=== PATIENT | male | born 1940 | race Two or more races ===

== ENCOUNTER → 2016-07-04 | Outpatient (CLI) | payer MEDICARE, OTHER | LOC: RAD 07:18 | PROVIDERS: ATTEND Specialist | DX: C34.91 Malignant neoplasm of unspecified part of right bronchus or lung (principal) | CPT/HCPCS: 71260; 82565 ==

== ENCOUNTER → 2017-04-22 | Outpatient (CLI) | payer MEDICARE, OTHER ==
--- NOTE | 2017-04-22 11:53 | RADIOLOGY REPORT (SQ) ---
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 Images reviewed with lung, soft tissue and bone windows. Reconstructed coronal and sagittal MPR images reviewed. All images stored on PACS. All CT scanners at this facility use dose modulation, iterative reconstruction, and/or weight based d osing when appropriate to reduce radiation dose to as low as reasonably achievable (ALARA). [facility]: Dose Right [facility]: CareDose [facility]: Dose Right [facility]: Teradose 4D [facility]: Optovue CONTRAST TYPE AND DOSE: contrast/concentration: Isovue 370.00 mg/ml; Total Contrast Delivered: 80.0 ml; Total Saline Delivered: 34.4 ml RENAL FUNCTION: Creatinine 1.1 RADIATION DOSE: CT Rad equipment meets quality standard of care and radiation dose reduction techniq ues were employed. CTDIvol: 17.1 mGy. DLP: 658 mGy-cm. . LIMITATIONS: None. FINDINGS: LUNGS AND PLEURA: Post right upper lobectomy. Stable subcentimeter ground-glass opacities at the left lung apex axial image 16, unchanged from 2015 . Stable non cat bite granuloma left upper lobe axial image 30. No acute infiltrates. No pleural effusion. No pneumothorax. No worrisome pulmonary nodules. HILAR AND MEDIASTINAL STRUCTURES: Post right upper lobectomy with surgical clips along the right hilu m. No adenopathy. HEART AND VASCULAR STRUCTURES: No aneurysm or dissection. No central pulmonary emboli. No pericardi al effusion. Minimal coronary artery calcification HARDWARE: None in the chest. UPPER ABDOMEN: Small hiatal hernia. Old ventral hernia repair THYROID AND OTHER SOFT TISSUES: No masses. No adenopathy. BONES: Old post thoracotomy rib changes on the right multilevel degenerative disc changes in the mid thoracic spine. OTHER: No other significant finding. IMPRESSION: No CT evidence of recurrent lung cancer in the chest TECHNICAL DOCUMENTATION: JOB ID: [id number] Quality ID # [id number]: Final reports with documentation of one or more dose reduction techniques (e.g., Au tomated exposure control, adjustment of the mA and/or kV according to patient size, use of iterative reconstruction technique) 2010 [employer]- All Rights Reserved
== END ==
LOC: RAD 08:17
PROVIDERS: ATTEND Internal Medicine Hematology & Oncology
DX: C34.91 Malignant neoplasm of unspecified part of right bronchus or lung (principal)
CPT/HCPCS: 71260; 82565

== ENCOUNTER 2017-05-09 11:08 | Day surgery (SDC) | payer MEDICARE, OTHER ==
[~2017-05-09 11:08] MED LIST: KETOROLAC TROMETHAMINE 0.45% 4 DROP/0.4 ML DROPERETTE OS PRN
[2017-05-09] MEDS ORDERED: CHONDR SU A NA/HYALUR INTRAOC KIT (SURGICARE) ONE (11:19)
[2017-05-09] MEDS ORDERED: LIDOCAINE 1% INJ-PF (10 MG/ML) 30 ML SDV ONE (11:19)
[2017-05-09] MEDS ORDERED: PHENYLEPHRINE/KETOROLAC 1%-0.3% 4 ML VIAL ONE (11:19)
[2017-05-09] MEDS: CYCLOPENTOLATE 0.2%/PHENYLEPHRINE 1% OPH SOLN 2 ML OS PRN ×3 (11:23→12:12)
[2017-05-09] MEDS: TROPICAMIDE 1% OPH SOLN 3 ML OS PRN ×3 (11:23→12:12)
[2017-05-09] MEDS: BESIFLOXACIN HCL 0.6% OPH SUSP 5 ML BOTTLE OS PRN ×3 (11:24→13:06)
[2017-05-09] MEDS: TETRACAINE HCL 0.5% OPH SOLN 2 ML OS PRN ×3 (11:25→12:35)
[2017-05-09] MEDS ORDERED: FENTANYL CITRATE INJ/PF 100 MCG/2 ML AMPUL ONE (12:09)
[2017-05-09] MEDS ORDERED: MIDAZOLAM 2 MG/2 ML INJ ONE (12:09)
[2017-05-09] MEDS ORDERED: TOBRAMYCIN SULFATE/DEXAMETH OPH OINTMENT 3.5 GM ONE (13:01)
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
--- NOTE | 2017-05-09 21:13 | [facility] OPERATIVE REPORT E ---
[facility] Operative Report NAME: ALFONSO CARRANZA AGE: 77Y DATE OF SURGERY: 05/09/2017 ROOM: PREOPERATIVE DIAGNOSIS: 1. CATARACT, LEFT EYE. 2. PUPIL MIOSIS LEFT EYE. POSTOPERATIVE DIAGNOSIS: 1. CATARACT, LEFT EYE. 2. PUPIL MIOSIS LEFT EYE. OPERATION: Complex cataract extraction with use of a Malyugin ring. SURGEON: MONIE WOLF M.D. ANESTHESIA: Topical. PROCEDURE: After obtaining appropriate consent, the patient's left eye was prepped and draped in sterile fashion as well as the surgeon in a sterile manner and cataract surgery was started. First a paracentesis blade was used to make a small side-port incision. Viscoelastic was used to inflate the anterior chamber. Next a 2.4 mm incision was made with the paracentesis blade. A continuous capsulorrhexis incision was made using a cystotome and Utrata forceps. Following this hydrodissection was carried out to make the lens fully loose and mobile and it was rotated 90 degrees. Following this, a aeimpw-lja-ryvnewh technique was used to phacoemulsify the lens with a CDE of 8.25. The remaining cortex was removed with irrigation/aspiration. Provisc was instilled into the capsular bag to inflate the bag. A SN60WF, 21.0 diopter lens was placed. The remaining viscoelastic material was removed with irrigation/aspiration. Following this, a 10-0 nylon suture was used to close the incision and it was found to be watertight. Vigamox was instilled in the eye and a protective shield was placed over the eye. The patient returned to the postoperative recovery in stable condition. Prior to making the capsulorrhexis a Malyugin ring was inserted. This was removed at the end of the case. DICTATING PHYSICIAN: MONIE WOLF M.D. [id number] PHY#: [id number] ID: [id number] JOB#: [id number] ACCT: [id number] cc:MONIE WOLF M.D. >
== END 2017-05-09 13:45 | disposition home or self-care (01) ==
LOC: SC 11:08
PROVIDERS: ATTEND Internal Medicine
PROC: 08RK3JZ Replacement of Left Lens with Synthetic Substitute, Percutaneous Approach (ICD-10-PCS; principal; 2017-05-09 13:00)
DX: H25.13 Age-related nuclear cataract, bilateral (principal); H57.03 Miosis; I10 Essential (primary) hypertension; K21.9 Gastro-esophageal reflux disease without esophagitis; E11.9 Type 2 diabetes mellitus without complications; Z79.84 Long term (current) use of oral hypoglycemic drugs; Z79.01 Long term (current) use of anticoagulants; Z85.51 Personal history of malignant neoplasm of bladder; Z85.118 Personal history of other malignant neoplasm of bronchus and lung; I48.91 Unspecified atrial fibrillation
CPT/HCPCS: 66982; 82962; V2632; J2250; J3490 ×3; A9270; J3010; C9447; 142

== ENCOUNTER 2017-06-06 08:28 | Outpatient (CLI) | payer MEDICARE, OTHER ==
[~2017-06-06 08:28] MED LIST changes: +FERUMOXYTOL (NON-ESRD) 510 MG/NS 100 ML IV PRN; -KETOROLAC TROMETHAMINE 0.45% 4 DROP/0.4 ML DROPERETTE OS PRN; +NORMAL SALINE 250 ML IV PRN
[2017-06-06 09:44] VITALS: BP 125/71
== END 2017-06-06 10:02 | disposition home or self-care (01) ==
LOC: II 08:28 → 5TH 08:29 → II 10:02
PROVIDERS: ATTEND Internal Medicine Hematology & Oncology
PROC: 3E033GC Introduction of Other Therapeutic Substance into Peripheral Vein, Percutaneous Approach (ICD-10-PCS; principal; 2017-06-06)
DX: D50.0 Iron deficiency anemia secondary to blood loss (chronic) (principal); N18.3 Chronic kidney disease, stage 3 (moderate)
CPT/HCPCS: 96365; Q0138

== ENCOUNTER 2017-06-13 08:22 | Outpatient (CLI) | payer MEDICARE, OTHER ==
[2017-06-13 08:48] VITALS: BP 127/73
== END 2017-06-13 09:34 | disposition home or self-care (01) ==
LOC: II 08:22 → 5TH 08:24 → II 09:34
PROVIDERS: ATTEND Internal Medicine Hematology & Oncology
PROC: 3E033GC Introduction of Other Therapeutic Substance into Peripheral Vein, Percutaneous Approach (ICD-10-PCS; principal; 2017-06-13)
DX: D50.0 Iron deficiency anemia secondary to blood loss (chronic) (principal); N18.3 Chronic kidney disease, stage 3 (moderate)
CPT/HCPCS: 96367; Q0138; 96365

== ENCOUNTER 2017-06-20 10:37 | Day surgery (SDC) | payer MEDICARE, OTHER ==
[~2017-06-20 10:37] MED LIST changes: +BESIFLOXACIN HCL 0.6% OPH SUSP 5 ML BOTTLE OD PRN; +CYCLOPENTOLATE 0.2%/PHENYLEPHRINE 1% OPH SOLN 2 ML OD PRN; -FERUMOXYTOL (NON-ESRD) 510 MG/NS 100 ML IV PRN; +KETOROLAC TROMETHAMINE 0.45% 4 DROP/0.4 ML DROPERETTE OD PRN; -NORMAL SALINE 250 ML IV PRN; +TETRACAINE HCL 0.5% OPH SOLN 2 ML OD PRN; +TROPICAMIDE 1% OPH SOLN 3 ML OD PRN
[2017-06-20] MEDS: TETRACAINE HCL 0.5% OPH SOLN 2 ML OD PRN ×3 (10:52→11:47)
[2017-06-20] MEDS: TROPICAMIDE 1% OPH SOLN 3 ML OD PRN ×3 (10:53→11:20)
[2017-06-20] MEDS: CYCLOPENTOLATE 0.2%/PHENYLEPHRINE 1% OPH SOLN 2 ML OD PRN ×3 (10:53→11:21)
[2017-06-20] MEDS: BESIFLOXACIN HCL 0.6% OPH SUSP 5 ML BOTTLE OD PRN ×4 (10:54→12:16)
[2017-06-20] MEDS ORDERED: CHONDR SU A NA/HYALUR INTRAOC KIT (SURGICARE) ONE (10:55)
[2017-06-20] MEDS ORDERED: PHENYLEPHRINE/KETOROLAC 1%-0.3% 4 ML VIAL ONE (10:55)
[2017-06-20] MEDS ORDERED: LIDOCAINE 1% INJ-PF (10 MG/ML) 30 ML SDV ONE (10:55)
[2017-06-20] MEDS ORDERED: EPINEPHRINE INJ/PF 1 MG/1 ML AMPULE ONE (11:04)
[2017-06-20] MEDS ORDERED: MIDAZOLAM 2 MG/2 ML INJ ONE (11:39)
[2017-06-20] MEDS ORDERED: FENTANYL CITRATE INJ/PF 100 MCG/2 ML AMPUL ONE (11:40)
--- NOTE | 2017-06-20 17:28 | [facility] OPERATIVE REPORT E ---
[facility] Operative Report NAME: ALFONSO CARRANZA AGE: 77Y DATE OF SURGERY: 06/20/2017 ROOM: PREOPERATIVE DIAGNOSIS: 1. CATARACT, RIGHT EYE. 2. PUPIL MIOSIS OF THE RIGHT EYE. POSTOPERATIVE DIAGNOSIS: 1. CATARACT, RIGHT EYE. 2. PUPIL MIOSIS OF THE RIGHT EYE. OPERATION: Complex cataract extraction with use of a Malyugin and intraocular lens implant of the right eye. SURGEON: MONIE WOLF M.D. ANESTHESIA: Topical. PROCEDURE: After obtaining appropriate consent, the patient's right eye was prepped and draped in sterile fashion as well as the surgeon in a sterile manner and cataract surgery was started. First a paracentesis blade was used to make a small side-port incision. Viscoelastic was used to inflate the anterior chamber. Next a 2.4 mm incision was made with the paracentesis blade. A continuous capsulorrhexis incision was made using a cystotome and Utrata forceps. Following this hydrodissection was carried out to make the lens fully loose and mobile and it was rotated 90 degrees. Following this, a ikajoz-uzc-qjmypzj technique was used to phacoemulsify the lens with a CDE of 8.49. The remaining cortex was removed with irrigation/aspiration. Provisc was instilled into the capsular bag to inflate the bag. A SN60WF, 19.5 diopter lens was placed. The remaining viscoelastic material was removed with irrigation/aspiration. Following this, a 10-0 nylon suture was used to close the incision and it was found to be watertight. Vigamox was instilled in the eye and a protective shield was placed over the eye. The patient returned to the postoperative recovery in stable condition. DICTATING PHYSICIAN: MONIE WOLF M.D. [id number] PHY#: [id number] ID: [id number] JOB#: [id number] ACCT: [id number] cc:MONIE WOLF M.D. >
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
== END 2017-06-20 12:52 | disposition home or self-care (01) ==
LOC: SC 10:37
PROVIDERS: ATTEND Internal Medicine
PROC: 08RJ3JZ Replacement of Right Lens with Synthetic Substitute, Percutaneous Approach (ICD-10-PCS; principal; 2017-06-20 12:30)
DX: H25.11 Age-related nuclear cataract, right eye (principal); H57.03 Miosis; I10 Essential (primary) hypertension; E11.9 Type 2 diabetes mellitus without complications; K21.9 Gastro-esophageal reflux disease without esophagitis; M79.7 Fibromyalgia
CPT/HCPCS: 82962; 66984; V2632; J2250; J3490 ×2; A9270; J0171; J3010; 142; C9447

== ENCOUNTER 2017-08-20 07:20 | Outpatient (CLI) | payer MEDICARE, OTHER ==
[~2017-08-20 07:20] MED LIST changes: -BESIFLOXACIN HCL 0.6% OPH SUSP 5 ML BOTTLE OD PRN; -CYCLOPENTOLATE 0.2%/PHENYLEPHRINE 1% OPH SOLN 2 ML OD PRN; +FERRIC CARBOXYMALTOSE 750 MG in NORMAL SALINE 250 ML IV PRN; -KETOROLAC TROMETHAMINE 0.45% 4 DROP/0.4 ML DROPERETTE OD PRN; +NORMAL SALINE 250 ML IV PRN; -TETRACAINE HCL 0.5% OPH SOLN 2 ML OD PRN; -TROPICAMIDE 1% OPH SOLN 3 ML OD PRN
[2017-08-20 08:07] VITALS: BP 153/86
== END 2017-08-20 09:09 | disposition home or self-care (01) ==
LOC: II 07:20 → 5TH 07:22 → II 09:09
PROVIDERS: ATTEND Internal Medicine Hematology & Oncology
PROC: 3E033GC Introduction of Other Therapeutic Substance into Peripheral Vein, Percutaneous Approach (ICD-10-PCS; principal; 2017-08-20)
DX: D50.0 Iron deficiency anemia secondary to blood loss (chronic) (principal); K90.9 Intestinal malabsorption, unspecified
CPT/HCPCS: 96365; J7050; J1439

== ENCOUNTER 2017-08-27 07:36 | Outpatient (CLI) | payer MEDICARE, OTHER ==
[2017-08-27 08:07] VITALS: BP 140/73
== END 2017-08-27 09:56 | disposition home or self-care (01) ==
LOC: II 07:36 → 5TH 07:39 → II 09:56
PROVIDERS: ATTEND Internal Medicine Hematology & Oncology
PROC: 3E033GC Introduction of Other Therapeutic Substance into Peripheral Vein, Percutaneous Approach (ICD-10-PCS; principal; 2017-08-27)
DX: D50.0 Iron deficiency anemia secondary to blood loss (chronic) (principal); K90.9 Intestinal malabsorption, unspecified
CPT/HCPCS: 96365; J7050; J1439

== ENCOUNTER → 2018-07-30 | Outpatient (CLI) | payer MEDICARE, OTHER ==
--- NOTE | 2018-07-30 09:19 | RADIOLOGY REPORT (SQ) ---
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 Images reviewed with lung, soft tissue and bone windows. Reconstructed coronal and sagittal MPR images reviewed. All images st ored on PACS. All CT scanners at this facility use dose modulation, iterative reconstruction, and/or weight based d osing when appropriate to reduce radiation dose to as low as reasonably achievable (ALARA). [facility]: Dose Right [facility]: CareDose [facility]: Dose Right [facility]: Teradose 4D [facility]: [employer] RADIATION DOSE: CT Rad equipment meets quality standard of care and radiation dose reduction techniq ues were employed. CTDIvol: 15.9 mGy. DLP: 604 mGy-cm. mGy. LIMITATIONS: No technical limitations. FINDINGS: LUNGS AND PLEURA: Focal areas of ground-glass opacity in the left lung apex are stable fro m prior exam. There is stable scarring in the right upper lobe. There is volume loss on the right. There is a stable subpleural nodule in the periphery of the left upper lobe demonstrated on image 36 . HILAR AND MEDIASTINAL STRUCTURES: Postsurgical changes in the right hilum. No pathologic adenopathy. HEART AND VASCULAR STRUCTURES: No aneurysm. No pericardial effusion. UPPER ABDOMEN: No significant findings. Limited exam. THYROID AND OTHER SOFT TISSUES: No masses. No adenopathy. BONES: Post thoracotomy changes on the right. HARDWARE: None in the chest. OTHER: No other significant findings. IMPRESSION: Stable CT of the chest. No evidence of recurrent disease or metastatic disease. TECHNICAL DOCUMENTATION: JOB ID: [id number] Quality ID # [id number]: Final reports with documentation of one or more dose reduction techniques (e.g., Au tomated exposure control, adjustment of the mA and/or kV according to patient size, use of iterative reconstruction technique) 2010 [employer]- All Rights Reserved Reading location - IP/workstation name: [email or web address]
== END ==
LOC: RAD 07:39
PROVIDERS: ATTEND Internal Medicine Hematology & Oncology
DX: C34.91 Malignant neoplasm of unspecified part of right bronchus or lung (principal)
CPT/HCPCS: 71250

== ENCOUNTER → 2019-08-03 | Outpatient (CLI) | payer MEDICARE, OTHER ==
--- NOTE | 2019-08-03 12:01 | RADIOLOGY REPORT (SQ) ---
EXAM DESCRIPTION: CT CHEST WITHOUT COMPLETED DATE/TIME: 08/03/2019 9:44 am REASON FOR STUDY: (C34.91)MALIGNANT NEOPLASM OF UNSP PART OF RIGHT BRONCHUS OR LUNG C34.91 MALIGNAN T NEOPLASM OF UNSP PART OF RIGHT BRONCHUS OR COMPARISON: 07/30/2018 TECHNIQUE: CT scan performed of the chest without intravenous contrast. Images reviewed with lung, soft tissue and bone windows. Reconstructed coronal and sagittal MPR images reviewed. All images st ored on PACS. All CT scanners at this facility use dose modulation, iterative reconstruction, and/or weight based d osing when appropriate to reduce radiation dose to as low as reasonably achievable (ALARA). [facility]: Dose Right [facility]: CareDose [facility]: Dose Right [facility]: Teradose 4D [facility]: [employer] RADIATION DOSE: CT Rad equipment meets quality standard of care and radiation dose reduction techniq ues were employed. CTDIvol: 15.0 mGy. DLP: 604 mGy-cm. mGy. LIMITATIONS: No technical limitations. FINDINGS: LUNGS AND PLEURA: Ground-glass opacities in the left apex are stable to slightly smaller t miles on the previous study. Best seen image 19 series 4. Pleural base nodule left lung stable sub 5 mm. Image 36 series 4. HILAR AND MEDIASTINAL STRUCTURES: No identified masses or abnormal nodes. No obvious aneurysm. HEART AND VASCULAR STRUCTURES: Moderate coronary artery calcification. No pericardial effusion. UPPER ABDOMEN: No significant findings. Limited exam. THYROID AND OTHER SOFT TISSUES: No masses. No adenopathy. BONES: No significant finding. HARDWARE: None in the chest. OTHER: No other significant findings. IMPRESSION: Stable CT of the chest. No evidence for recurrence. Moderate coronary artery calcification. TECHNICAL DOCUMENTATION: JOB ID: [id number] Quality ID # [id number]: Final reports with documentation of one or more dose reduction techniques (e.g., Au tomated exposure control, adjustment of the mA and/or kV according to patient size, use of iterative reconstruction technique) 2010 [employer]- All Rights Reserved Reading location - IP/workstation name: [email or web address]
== END ==
LOC: RAD 09:28
PROVIDERS: ATTEND Nurse Practitioner Family
DX: C34.91 Malignant neoplasm of unspecified part of right bronchus or lung (principal)
CPT/HCPCS: 71250

== ENCOUNTER 2020-05-25 12:34 | Emergency (ER) | payer MEDICARE, OTHER ==
[2020-05-25] MEDS ORDERED: NORMAL SALINE 1000 ML 1,000 ML IV ONE (12:51)
--- NOTE | 2020-05-25 13:02 | ER Document Report ---
ED Medical Screen (RME) - General Chief Complaint: Shortness Of Breath Stated Complaint: SHORT OF BREATH,COUGH Time Seen by Provider: 05/25/20 12:49 Primary Care Provider: IFRAH CORONEL MD [Primary Care Provider] - Follow up as needed Mode of Arrival: Wheelchair Information source: Patient Notes: 80-year-old male patient with multiple comorbidities presenting to the emergency department with generalized malaise, weakness and back pain. Patient reports he tested positive for Covid on 05/12/2020. He states he is not getting any better. Patient is hypotensive in triage, he overall actually appears well and is answering all questions appropriately. Lung sounds clear and equal bilaterally. I have greeted and performed a rapid initial assessment of this patient. A comprehensive ED assessment and evaluation of the patient, analysis of test results and completion of the medical decision making process will be conducted by additional ED providers. I have specifically instructed the patient or family members with the patient to immediately return to any nursing staff should anything change in the patient's condition or with their chief complaint. TRAVEL OUTSIDE OF THE [place] IN LAST 30 DAYS: No - Related Data Allergies/Adverse Reactions: No Known Allergies Allergy (Verified 05/01/17 14:29) Past Medical History - Past Medical History Cardiac Medical History: Reports: Hx Hypertension - MEDICATED Denies: Hx Heart Attack Pulmonary Medical History: Denies: Hx Asthma Neurological Medical History: Denies: Hx Cerebrovascular Accident, Hx Seizures GI Medical History: Denies: Hx Hepatitis, Hx Hiatal Hernia, Hx Ulcer Infectious Medical History: Denies: Hx Hepatitis Past Surgical History: Denies: Hx Open Heart Surgery, Hx Pacemaker Physical Exam - Vital signs Vitals: Temp Pulse Resp BP Pulse Ox 98.0 F 76 24 H 84/58 L 96 05/25/20 12:44 05/25/20 12:44 05/25/20 12:44 05/25/20 12:44 05/25/20 12:44 Course - Vital Signs Vital signs: Temp Pulse Resp BP Pulse Ox 98.0 F 76 24 H 84/58 L 96 05/25/20 12:44 05/25/20 12:44 05/25/20 12:44 05/25/20 12:44 05/25/20 12:44 Doctor's Discharge - Discharge Referrals: IFRAH CORONEL MD [Primary Care Provider] - Follow up as needed
--- NOTE | 2020-05-25 13:34 | RADIOLOGY REPORT (SQ) ---
EXAM DESCRIPTION: CHEST SINGLE VIEW IMAGES COMPLETED DATE/TIME: 05/25/2020 1:26 pm REASON FOR STUDY: SHORTNESS OF BREATH/RECENT COVID+ 05/12 COMPARISON: None. EXAM PARAMETERS: NUMBER OF VIEWS: One view. TECHNIQUE: Single frontal radiographic view of the chest acquired. RADIATION DOSE: NA LIMITATIONS: None. FINDINGS: LUNGS AND PLEURA: Surgical changes on the right with volume loss. Faint opacity in the mi d right lung. Left lung relatively clear. No large pleural effusion. No pneumothorax. MEDIASTINUM AND HILAR STRUCTURES: No masses. Contour normal. HEART AND VASCULAR STRUCTURES: Heart normal in size. Normal vasculature. BONES: No acute findings. Degenerative changes in the spine. Surgical changes in the right ribs. HARDWARE: None in the chest. OTHER: No other significant finding. IMPRESSION: STABLE SURGICAL CHANGES ON THE RIGHT. FAINT OPACITY IN THE MID RIGHT LUNG COULD REPRESE NT UNDERLYING PNEUMONIA. TECHNICAL DOCUMENTATION: JOB ID: [id number] 2010 [employer]- All Rights Reserved Reading location - IP/workstation name: [email or web address]
[2020-05-25 14:15] LABS: ABSOLUTE BASOPHILS # (AUTO) 0.2 10^3/uL (0.0-0.2); ABSOLUTE EOSINOPHILS # (AUTO) 0.2 10^3/uL (0.0-0.6); ABSOLUTE LYMPHOCYTES (AUTO) 2.1 10^3/uL (0.5-4.7); ABSOLUTE MONOCYTES (AUTO) 1.2 10^3/uL (0.1-1.4); ABSOLUTE NEUT (AUTO) 6.7 10^3/uL (1.7-8.2); BASOPHILS % (AUTO) 1.6 % (0-2); EOSINOPHILS % (AUTO) 2.1 % (0-6); HEMATOCRIT 39.2 % (37.9-51.0); HEMOGLOBIN 13.5 g/dL (13.5-17.0); LYMPHOCYTES % (AUTO) 20.2 % (13-45); MEAN CORPUSCULAR HEMOGLOBIN 29.9 pg (27.0-33.4); MEAN CORPUSCULAR HGB CONC 34.4 g/dL (32.0-36.0); MEAN CORPUSCULAR VOLUME 87 fl (80-97); MONOCYTES % (AUTO) 11.3 % (3-13); PLATELET COUNT 472 10^3/uL (150-450); RED BLOOD COUNT 4.52 10^6/uL (4.35-5.55); RED CELL DISTRIBUTION WIDTH 15.2 % (11.5-14.0); SEGMENTED NEUTROPHILS % (AUTO) 64.8 % (42-78); TOTAL CELLS COUNTED % (AUTO) 100 %; WHITE BLOOD COUNT 10.4 10^3/uL (4.0-10.5)
[2020-05-25 14:50] LABS: ALBUMIN 3.4 g/dL (3.5-5.0); ALKALINE PHOSPHATASE 55 U/L (38-126); ANION GAP 8 (5-19); ASPARTATE AMINO TRANSFERASE 24 U/L (17-59); BILIRUBIN,DIRECT 0.2 mg/dL (0.0-0.4); BILIRUBIN,TOTAL 1.6 mg/dL (0.2-1.3); BLOOD UREA NITROGEN 24 mg/dL (7-20); CALCIUM 8.7 mg/dL (8.4-10.2); CARBON DIOXIDE 26 mmol/L (22-30); CHLORIDE 108 mmol/L (98-107); GLUCOSE 112 mg/dL (75-110); POTASSIUM 3.7 mmol/L (3.6-5.0); TOTAL PROTEIN 6.3 g/dL (6.3-8.2)
--- NOTE | 2020-05-25 15:03 | ER Document Report ---
ED General - General Chief Complaint: General Weakness Stated Complaint: SHORT OF BREATH,COUGH Time Seen by Provider: 05/25/20 12:49 Primary Care Provider: IFRAH CORONEL MD [Primary Care Provider] - Follow up tomorrow Mode of Arrival: Wheelchair TRAVEL OUTSIDE OF THE [place] IN LAST 30 DAYS: No - HPI Notes: Patient is a 80-year-old male with a past medical history of hypertension, atrial fibrillation, lung mass status post resection who presents with Covid complaints. Patient was diagnosed with Covid at the end of April. He states that he saw the PCP and was given an antibiotic but does not member what it was. He returns today because he still feels weak and tired. He states that he is unable to eat because he has no appetite. He states that he is able to drink water. He denies any chest pain. He has a slight cough left over. No head aches. No chest pain, no shortness of breath. No abdominal pain. He mentions he does still have occasional diarrhea. - Related Data Allergies/Adverse Reactions: No Known Allergies Allergy (Verified 05/01/17 14:29) Past Medical History - General Information source: Patient - Social History Smoking Status: Former Smoker Chew tobacco use (# tins/day): No Frequency of alcohol use: None Drug Abuse: None Lives with: Family Family History: Reviewed & Not Pertinent Patient has homicidal ideation: No - Past Medical History Cardiac Medical History: Reports: Hx Hypertension - MEDICATED Denies: Hx Heart Attack Pulmonary Medical History: Denies: Hx Asthma Neurological Medical History: Denies: Hx Cerebrovascular Accident, Hx Seizures GI Medical History: Denies: Hx Hepatitis, Hx Hiatal Hernia, Hx Ulcer Infectious Medical History: Denies: Hx Hepatitis Past Surgical History: Denies: Hx Open Heart Surgery, Hx Pacemaker Review of Systems - Review of Systems Notes: CONSTITUTIONAL: No fever or weight loss. Positive for fatigue. SKIN: No rash. HENT: No congestion, ear pain, or sore throat. EYES: No recent vision problems or eye pain. CARDIOVASCULAR: No chest pain or edema. RESPIRATORY: No cough, shortness of breath, congestion, or wheezing. GASTROINTESTINAL: No abdominal pain, nausea, vomiting. Positive for loss of appetite and occasional nonbloody diarrhea. MUSCULOSKELETAL: No joint pain or swelling. LYMPHATIC: No swollen glands. NEUROLOGIC: No seizures. No headache, focal weakness or sensory changes. HEMATOLOGIC: No unusual bruising or bleeding. PSYCHIATRIC: No depression or anxiety. Physical Exam - Vital signs Vitals: Temp Pulse Resp BP Pulse Ox 98.0 F 76 24 H 84/58 L 96 05/25/20 12:44 05/25/20 12:44 05/25/20 12:44 05/25/20 12:44 05/25/20 12:44 - General General appearance: Appears well In distress: None Notes: VITAL SIGNS: Within normal limits. GENERAL: No acute distress, non-toxic appearance. HEAD: Normal with no signs of head trauma. EYES: Conjunctiva normal, no discharge. EARS: Hearing grossly intact. NOSE: Normal. NECK: Normal range of motion, no tenderness, supple, no lymphadenopathy, No adenopathy, no JVD. CHEST: Clear breath sounds bilaterally. No wheezes, rales, or rhonchi. CARDIAC: Regular rate and rhythm. VASCULAR: No Edema. ABDOMEN: Normal and soft with no tenderness, no masses or pulsatile masses. MUSCULOSKELETAL: Good range of motion of all major joints. Extremities without clubbing, cyanosis or edema. NEUROLOGICAL: Alert and oriented x 3. No focal sensory or strength deficits. Speech normal. Follows commands appropriately. PSYCHIATRIC: Normal Affect, judgement and mood. SKIN: Normal appearance with no rashes or lesions. Course - Re-evaluation Re-evalutation: 05/25/20 15:03 Patient appears well on exam. He was initially hypotensive in triage but this resolved before fluids were even started. He is resting comfortably and watching TV. He was placed on 2 L nasal cannula for comfort. I have taken this off to see how he does on room air. He is not tachypneic or in any respiratory distress. Patient has been off oxygen and satting in the high 90s. He was ambulated and his O2 saturations were 99% on room air. He is not in any respiratory distress. His lab work-up is unremarkable. He does have a finding of possibly a new developing pneumonia. I discussed this with Dr. Coronel, his PCP. He stated that patient can be sent home on doxycycline and a Medrol Dosepak. Dr. Coronel stated he will call him tomorrow and follow-up with him. Patient is very agreeable to this plan. He was given strict return precautions. 05/25/20 20:46 - Vital Signs Vital signs: Temp Pulse Resp BP Pulse Ox 98.5 F 76 17 121/73 94 05/25/20 18:01 05/25/20 12:44 05/25/20 18:01 05/25/20 18:01 05/25/20 18:01 - Laboratory Results Result Diagrams: 05/25/20 13:55 05/25/20 13:55 Laboratory Results Interpreted: 05/25/20 05/25/20 05/25/20 13:55 13:55 16:07 RDW 15.2 H Plt Count 472 H Chloride 108 H BUN 24 H Glucose 112 H Total Bilirubin 1.6 H Albumin 3.4 L Urine Protein 30 H Urine Ketones TRACE H Urine Ascorbic Acid 40 H Critical Laboratory Results Reviewed: No Critical Results - Radiology Results Critical Radiology Results Reviewed: No Critical Results - EKG Interpretation by Me EKG shows normal: Sinus rhythm Rate: Normal When compared to previous EKG there are: No significant change Additional EKG results interpreted by me: 05/25/20 20:48 Sinus rhythm at a rate of 64. QTc 458. PVCs present. No acute ST changes. Artifact present. No significant change from previous. Discharge - Discharge Clinical Impression: Pneumonia due to COVID-19 virus Condition: Stable Disposition: HOME, SELF-CARE Instructions: COVID-19 Guidance for Persons Under Investigation Additional Instructions: Your work-up today is reassuring. Your oxygen is normal. Please take your antibiotics and steroid pack. Dr. Coronel will follow up with you tomorrow and give you a call. Return to the ER for any shortness of breath or worsening symptoms. Prescriptions: Methylprednisolone [Medrol Dosepack (4 mg/Tab) 21 Tab/Dosepak] 4 mg PO ASDIR PRN #21 tab.ds.pk PRN Reason: Doxycycline Hyclate [Vibramycin] 100 mg PO BID 7 Days #14 capsule Referrals: IFRAH CORONEL MD [Primary Care Provider] - Follow up tomorrow
[2020-05-25 16:28] LABS: APPEARANCE,URINE CLEAR; BILIRUBIN,URINE NEGATIVE (NEGATIVE); COLOR,URINE YELLOW; GLUCOSE, URINE NEGATIVE (NEGATIVE); KETONES,URINE TRACE mg/dL (NEGATIVE); LEUKOCYTE ESTERASE,URINE NEGATIVE (NEGATIVE); NITRITE,URINE NEGATIVE (NEGATIVE); PROTEIN,URINE 30 mg/dL (NEGATIVE); URINE SPECIFIC GRAVITY 1.024; UROBILINOGEN,URINE NEGATIVE mg/dL (<2.0)
[2020-05-25] MEDS ORDERED: DOXYCYCLINE HYCLATE 100 MG TABLET PO ONE (17:11)
[2020-05-25 18:42] VITALS: BP 121/73
--- NOTE | 2020-05-25 19:20 | EKG REPORT ---
SEVERITY:- ABNORMAL ECG - SINUS RHYTHM VENTRICULAR BIGEMINY NONSPECIFIC INTRAVENTRICULAR CONDUCTION DELAY : Confirmed by: María Villatoro MD 25-May-2020 19:19:36
== END 2020-05-25 19:21 | disposition home or self-care (01) ==
LOC: ER 12:34
DX: U07.1 COVID-19 (principal); J12.82 Pneumonia due to coronavirus disease 2019; Z87.891 Personal history of nicotine dependence
CPT/HCPCS: 93005; 99285; 96360; 36415; 87040; 83605; 85025; 80053; 81001; 84484; 85379; 71045; 93010; A9270; J7030

== ENCOUNTER 2020-06-03 19:53 | Inpatient (IN) | payer MEDICARE, OTHER ==
[2020-06-03] MEDS ORDERED: NORMAL SALINE 1000 ML 1,000 ML IV ONE ×2 (20:23→21:05)
[2020-06-03 20:35] LABS: ABSOLUTE BASOPHILS # (AUTO) 0.1 10^3/uL (0.0-0.2); ABSOLUTE EOSINOPHILS # (AUTO) 0.1 10^3/uL (0.0-0.6); ABSOLUTE LYMPHOCYTES (AUTO) 3.2 10^3/uL (0.5-4.7); ABSOLUTE MONOCYTES (AUTO) 1.5 10^3/uL (0.1-1.4); ABSOLUTE NEUT (AUTO) 10.5 10^3/uL (1.7-8.2); BASOPHILS % (AUTO) 0.9 % (0-2); EOSINOPHILS % (AUTO) 0.8 % (0-6); HEMOGLOBIN 14.6 g/dL (13.5-17.0); LYMPHOCYTES % (AUTO) 20.8 % (13-45); MEAN CORPUSCULAR HEMOGLOBIN 29.7 pg (27.0-33.4); MEAN CORPUSCULAR HGB CONC 33.9 g/dL (32.0-36.0); MEAN CORPUSCULAR VOLUME 88 fl (80-97); MONOCYTES % (AUTO) 9.9 % (3-13); PLATELET COUNT 507 10^3/uL (150-450); RED BLOOD COUNT 4.91 10^6/uL (4.35-5.55); SEGMENTED NEUTROPHILS % (AUTO) 67.6 % (42-78); TOTAL CELLS COUNTED % (AUTO) 100 %; WHITE BLOOD COUNT 15.5 10^3/uL (4.0-10.5)
[2020-06-03 20:52] LABS: ALBUMIN 3.1 g/dL (3.5-5.0); ALKALINE PHOSPHATASE 46 U/L (38-126); ANION GAP 12 (5-19); ASPARTATE AMINO TRANSFERASE 20 U/L (17-59); BILIRUBIN,DIRECT 0.3 mg/dL (0.0-0.4); BILIRUBIN,TOTAL 1.9 mg/dL (0.2-1.3); BLOOD UREA NITROGEN 33 mg/dL (7-20); CALCIUM 8.5 mg/dL (8.4-10.2); CARBON DIOXIDE 21 mmol/L (22-30); CHLORIDE 105 mmol/L (98-107); GLUCOSE 151 mg/dL (75-110); POTASSIUM 3.6 mmol/L (3.6-5.0); TOTAL PROTEIN 5.8 g/dL (6.3-8.2)
[2020-06-03] MEDS ORDERED: NOREPINEPHRINE BITARTRATE INJ/PF 4 MG/4 ML SDV IV ONE (21:03)
[2020-06-03] MEDS ORDERED: DEXTROSE 5%-WATER 250 ML with NOREPINEPHRINE BITARTRATE 4 MG IV PRN ×2 (21:04)
--- NOTE | 2020-06-03 21:06 | ER Document Report ---
Entered by KEE LANE SCRIBE 06/03/202011 Acting as scribe for:ANNALISE DICKENS IV, MD ED Respiratory Problem - General Chief Complaint: Shortness Of Breath Stated Complaint: SHORTNESS OF BREATH Time Seen by Provider: 06/03/20 20:10 Primary Care Provider: IFRAH SHAW MD [Primary Care Provider] - Follow up as needed Information source: Patient Notes: This 80-year-old male patient with lung cancer presents to the emergency department today with complaints of shortness of breath which began this afternoon. Patient's tested positive for COVID-19 approximately 2 weeks ago. They could not get a result on their pulse ox machine at home so they called 911. Patient is a poor historian so history is limited. TRAVEL OUTSIDE OF THE [place] IN LAST 30 DAYS: No - Related Data Allergies/Adverse Reactions: No Known Allergies Allergy (Verified 05/01/17 14:29) Past Medical History - General Information source: Patient - Social History Smoking Status: Former Smoker Cigarette use (# per day): No Frequency of alcohol use: None Drug Abuse: None Lives with: Family Family History: Reviewed & Not Pertinent - Past Medical History Cardiac Medical History: Reports: Hx Hypercholesterolemia, Hx Hypertension - MEDICATED Surgical Hx: Negative Review of Systems - Review of Systems Constitutional: No symptoms reported EENT: No symptoms reported Cardiovascular: No symptoms reported Respiratory: See HPI, Short of breath Gastrointestinal: No symptoms reported Genitourinary: No symptoms reported Male Genitourinary: No symptoms reported Musculoskeletal: No symptoms reported Skin: No symptoms reported Hematologic/Lymphatic: No symptoms reported Neurological/Psychological: No symptoms reported -: Yes All other systems reviewed and negative Physical Exam - Vital signs Vitals: Resp BP Pulse Ox 22 H 73/48 L 99 06/03/20 20:20 06/03/20 20:20 06/03/20 20:20 - Notes Notes: Physical Exam: General: Alert, appears chronically ill. HEENT: Normocephalic. Atraumatic. PERRL. Extraocular movements intact. Oropharynx clear. Neck: Supple. Non-tender. Respiratory: Mild to moderate respiratory distress, tachypneic, diminished breath sounds in the left base, clear and equal throughout otherwise. Cardiovascular: Tachycardic into the 140s, irregularly irregular. Abdominal: Obese. Non-tender. No distension. Normal Bowel Sounds. Back: No gross abnormalities. Extremities: Moves all four extremities. Upper extremities: Normal inspection. Normal ROM. Lower extremities: Normal inspection. No edema. Normal ROM. Neurological: Normal cognition. AAOx4. Normal speech. Psychological: Normal affect. Normal Mood. Skin: Warm. Dry. Normal color. Course - Re-evaluation Re-evalutation: 06/03/20 20:21 Differential diagnosis: COVID-19 pneumonia, atrial fibrillation with RVR, community-acquired pneumonia, influenza, postobstructive pneumonia, sepsis, ba cteremia, septicemia 06/04/20 00:48 Medical decision making: Given the patient is hypotensive, has a elevated white count, a lactic acid of 3.8 and is requiring Levophed to keep his systolic pressure above 90, I have to assume there is a sepsis component that warrants a total 30 cc/kg fluid bolus and broad-spectrum antibiotics. I have chosen to give the patient Zosyn and vancomycin; I have also given the patient a dose of Decadron since he is Covid positive. 06/04/20 05:52 Patient is maintaining MAP above 65 off of Levophed. Currently patient's heart rate is 82, his blood pressure is 104/65 with a MAP of 77. I believe that the patient can be admitted to IMCU given that he is no longer on vasopressors is more alert and is tolerating p.o. fluids. In addition, his lactic acid has gone from 3.8 down to 0.8. - Vital Signs Vital signs: Temp Pulse Resp BP Pulse Ox 98.9 F 142 H 16 114/67 99 06/03/20 20:36 06/03/20 20:21 06/04/20 04:01 06/04/20 04:01 06/04/20 04:01 - Laboratory Results Result Diagrams: 06/03/20 20:27 06/03/20 20:27 Laboratory Results Interpreted: 06/03/20 06/03/20 06/03/20 20:27 20:27 20:27 WBC 15.5 H RDW 15.0 H Plt Count 507 H Absolute Neuts (auto) 10.5 H Absolute Monos (auto) 1.5 H Carbon Dioxide 21 L BUN 33 H Creatinine 1.75 H Est GFR ( Amer) 46 L Est GFR (MDRD) Non-Af 38 L Glucose 151 H Lactic Acid 3.8 H Total Bilirubin 1.9 H Total Protein 5.8 L Albumin 3.1 L Urine Protein 06/03/20 22:37 WBC RDW Plt Count Absolute Neuts (auto) Absolute Monos (auto) Carbon Dioxide BUN Creatinine Est GFR ( Amer) Est GFR (MDRD) Non-Af Glucose Lactic Acid Total Bilirubin Total Protein Albumin Urine Protein 30 H Critical Laboratory Results Reviewed: Yes Attending or Supervising Physician who Reviewed Labs: ANNALISE DICKENS IV - Radiology Results Critical Radiology Results Reviewed: No Critical Results Attending or Supervising Physician who Reviewed Radiology: ANNALISE DICKENS IV - EKG Interpretation by Me Additional EKG results interpreted by me: 06/03/20 20:18 EKG obtained on 06/03/2020 at 2013 hrs. was interpreted by this MD. Findings: Atrial fibrillation with RVR, rate is 137, normal axis, no discernible P waves, QRS appears to be narrow, QTC is 508, there are no obvious patterns of ST segment elevation, depression or reciprocal changes seen to suggest acute myocardial ischemia or infarction. There is no prior EKG immediately available for comparison. Impression: Atrial fibrillation with RVR and nonspecific ST segments. - Consults Javier Montana NP, [employer] Service Time consulted: 01:07 - BIOSTATISTICS MANAGER Rubén agreed with plan to continue giving the pa tient fluids and weaning his Levophed drip as no ICU beds are available at this point. She said that I could get back in touch with her to update her on the patient's status after a fluid bolus and attempting to decrease the Levophed drip Reason for consultation: 06/04/20 01:07 COVID-19 positive, hypotension, on vasopressors Dr. Tan Time consulted: 05:52 - Dr. Tan excepted the patient for admission to [facility] on behalf of Dr. Shaw Reason for consultation: 06/04/20 05:54 Covid positive patient with with dyspnea, no longer on vasopressors Critical Care Note - Critical Care Note Total time excluding time spent on procedures (mins): 120 - Management of Covid positive patient with respiratory distress, hypotension, elevated white count and elevated lactic acid Discharge - Discharge Clinical Impression: COVID-19 virus infection, SIRS (systemic inflammatory response syndrome) Condition: Serious Disposition: ADMITTED INPATIENT Admitting Provider: Colin Unit Admitted: IMCU Referrals: IFRAH SHAW MD [Primary Care Provider] - Follow up as needed I personally performed the services described in the documentation, reviewed and edited the documentation which was dictated to the scribe in my presence, and it accurately records my words and actions.
--- NOTE | 2020-06-03 21:37 | RADIOLOGY REPORT (SQ) ---
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 Cardiac and mediastinal contours are stable. Elevation of the right hemidiaphragm remains unchanged, along with remote deformity involving one of the right-sided ribs. Pre-existing faint opacity within the right midlung zone appears improved from the previous exam. Left lung is overall clear. No pleural effusion or pneumothorax. A gas distended loop of bowel traverses the upper mid abdomen. IMPRESSION: Improved aeration of the right midlung zone when compared to the previous exam dated 05/25/2020. Overall, there are no new findings within the chest when compared to the previous exam dated 05/25/2020.
[2020-06-03] MEDS ORDERED: NORMAL SALINE IV ONE (22:09)
[2020-06-03] MEDS ORDERED: PIPERACILLIN/TAZOBACTAM 3.375 GM VIAL IV ONE (22:10)
[2020-06-03] MEDS ORDERED: VANCOMYCIN HCL INJ 1000 MG VIAL IV ONE (22:11)
[2020-06-03] MEDS ORDERED: DEXAMETHASONE SOD PHOS INJ 10 MG/1 ML VIAL IV ONE (22:41)
[2020-06-03 23:03] LABS: APPEARANCE,URINE SLIGHTLY-CLOUDY; BILIRUBIN,URINE NEGATIVE (NEGATIVE); COLOR,URINE YELLOW; GLUCOSE, URINE NEGATIVE (NEGATIVE); KETONES,URINE NEGATIVE (NEGATIVE); LEUKOCYTE ESTERASE,URINE NEGATIVE (NEGATIVE); NITRITE,URINE NEGATIVE (NEGATIVE); PROTEIN,URINE 30 mg/dL (NEGATIVE); URINE SPECIFIC GRAVITY 1.019; UROBILINOGEN,URINE NEGATIVE mg/dL (<2.0)
--- NOTE | 2020-06-04 00:23 | EKG REPORT ---
SEVERITY:- ABNORMAL ECG - ATRIAL FIBRILLATION WITH RVR 137/MIN PROBABLE POSTERIOR INFARCT PROLONGED QT INTERVAL : Confirmed by: Surya Varela MD 04-Jun-2020 00:23:19
[2020-06-04] MEDS ORDERED: NORMAL SALINE 1000 ML 1,000 ML IV ONE ×3 (01:05→13:45)
[2020-06-04] MEDS ORDERED: NOREPINEPHRINE BITARTRATE INJ/PF 4 MG/4 ML SDV IV ONE (03:09)
[2020-06-04] MEDS ORDERED: DEXTROSE 5%-WATER 250 ML with NOREPINEPHRINE BITARTRATE 4 MG IV PRN ×2 (05:04)
[2020-06-04] MEDS ORDERED: NORMAL SALINE 1000 ML 1,000 ML IV PRN (13:35)
[2020-06-04] MEDS ORDERED: DEXTROSE 50%-WATER 25 GM/50 ML DISP.SYRIN IV PRN ×2 (13:49)
[2020-06-04] MEDS ORDERED: GLUCAGON,HUMAN RECOMB 1 MG INJ IM PRN (13:49)
[2020-06-04] MEDS ORDERED: DEXTROSE 40% GEL 15 GM TUBE PO PRN ×2 (13:49)
[2020-06-04] MEDS ORDERED: VANCOMYCIN HCL 0 MG in DEXTROSE 5%-WATER 250 ML IV NR (14:00)
[2020-06-04] MEDS ORDERED: IVERMECTIN 3 MG TABLET PO ONE (15:00)
[2020-06-04] MEDS: ASPIRIN 81 MG TABLET, ENT COATED PO SCH (15:05)
[2020-06-04] MEDS: ATORVASTATIN CALCIUM 40 MG TABLET PO SCH (15:06)
[2020-06-04] MEDS: ASCORBIC ACID 500 MG TABLET PO SCH ×2 (15:06→21:49)
[2020-06-04] MEDS: PANTOPRAZOLE SODIUM 40 MG PACKET.DR PO SCH (15:06)
[2020-06-04] MEDS: BENZONATATE 100 MG CAPSULE PO SCH ×2 (15:06→21:49)
[2020-06-04] MEDS: CHOLECALCIFEROL (D3) 1,000 UNIT (25 MCG) TABLET PO SCH (15:06)
[2020-06-04] MEDS: ZINC SULFATE 220 MG CAPSULE PO SCH (15:06)
[2020-06-04 15:19] LABS: INTERNATIONAL RATION (INR) 1.62; PROTHROMBIN TIME 19.4 SEC (11.4-15.4)
[2020-06-04 15:20] LABS: FIBRINOGEN 203 mg/dL (209-497); PARTIAL THROMBOPLASTIN TIME 35.8 SEC (23.5-35.8)
[2020-06-04 15:22] LABS: D-DIMER 0.27 ug/mL (0.00-0.50)
[2020-06-04 15:28] LABS: CREATINE KINASE 35 U/L (55-170)
[2020-06-04 16:03] LABS: C-REACTIVE PROTEIN < 5.0 mg/L (<10.0)
[2020-06-04] MEDS: PIPERACILLIN SODIUM/TAZOBACTAM 3.375 GM in NORMAL SALINE 100 ML IV SCH ×2 (16:08→20:24)
[2020-06-04] MEDS ORDERED: VANCOMYCIN HCL 1,250 MG in DEXTROSE 5%-WATER 250 ML IV SCH (18:00)
[2020-06-04] MEDS: APIXABAN 5 MG TABLET PO SCH (18:49)
[2020-06-04] MEDS: INSULIN LISPRO 100 UNIT/ML 3 ML VIAL SUBCUT SCH ×2 (18:49→21:49)
--- NOTE | 2020-06-04 20:56 | PDOC H&P ---
History of Present Illness Admission Date/PCP: 06/04/20 06:12 IFRAH CORONEL MD Patient complains of: Shortness of breath History of Present Illness: ALFONSO CARRANZA is a 80 year old male patient of Dr. Coronel who presented to the ED with worsening shortness of breath. Patient was referred to the ED due to difficulty reading his pulse oximeter reading at home. He has history of lung cancer and his spouse was recently diagnosed with COVID-19 infection. Patient t ested positive for COVID-19 infection and he was advised hospitalization for further evaluation and management. His morbidities are listed below. Past Medical History Cardiac Medical History: Reports: Hyperlipidema, Hypertension - MEDICATED Denies: Myocardial Infarction Pulmonary Medical History: Denies: Asthma Neurological Medical History: Denies: Seizures GI Medical History: Denies: Hepatitis, Hiatal Hernia Psychiatric Medical History: Denies: Depression Hematology: Denies: Anemia, Sickle Cell Disease Past Surgical History Past Surgical History: Denies: Pacemaker Social History Lives with: Family Smoking Status: Former Smoker Electronic Cigarette use?: No Frequency of Alcohol Use: None Hx Recreational Drug Use: No Hx Prescription Drug Abuse: No - Advance Directive Resuscitation Status: Full Code Family History Family History: Reviewed & Not Pertinent Parental Family History Reviewed: Yes Children Family History Reviewed: Yes Sibling(s) Family History Reviewed.: Yes Medication/Allergy Home Medications: Carvedilol [Coreg 25 mg Tablet] 1 tab PO Q12 03/14/15 Dutasteride [Avodart] 0.5 mg PO DAILY 03/14/15 Ezetimibe [Zetia 10 mg Tablet] 10 mg PO DAILY 03/14/15 Levocetirizine Dihydrochloride [Xyzal 5 mg Tablet] 5 mg PO DAILY 03/14/15 Sitagliptin Phos/Metformin HCl [Janumet 50-500 mg Tablet] 1 each PO BID 03/14/15 Tamsulosin HCl [Flomax 0.4 mg Cap.sr] 0.4 mg PO DAILY 03/14/15 Apixaban [Eliquis 5 mg Tablet] 5 mg PO BID 05/01/17 Atorvastatin Calcium 40 mg PO DAILY 05/01/17 Furosemide 20 mg PO DAILY 05/01/17 Pantoprazole Sodium [Protonix] 40 mg PO DAILY 05/01/17 Sacubitril/Valsartan [Entresto 24 mg/26 mg Tablet] 1 tab PO DAILY 05/01/17 Methylprednisolone [Medrol Dosepack (4 mg/Tab) 21 Tab/Dosepak] 4 mg PO ASDIR PRN #21 tab.ds.pk 05/25/20 Benzonatate [Tessalon Perles 100 mg Capsule] 100 mg PO Q8 06/04/20 Allergies/Adverse Reactions: No Known Allergies Allergy (Verified 05/01/17 14:29) Review of Systems Constitutional: ABSENT: chills, fever(s), headache(s) Eyes: ABSENT: visual disturbances Ears: ABSENT: hearing changes Nose, Mouth, and Throat: ABSENT: headache(s), sore throat, vertigo Cardiovascular: PRESENT: dyspnea on exertion. ABSENT: chest pain, edema, palpitations Respiratory: PRESENT: cough, dyspnea. ABSENT: sputum Gastrointestinal: ABSENT: abdominal pain, constipation, diarrhea, nausea, vomiting Genitourinary: ABSENT: difficulty urinating, dysuria, hematuria Musculoskeletal: ABSENT: muscle weakness Integumentary: ABSENT: erythema, rash, wounds Neurological: PRESENT: confusion. ABSENT: abnormal gait, dizziness, syncope, tremor(s) Psychiatric: ABSENT: anxiety Endocrine: ABSENT: polydipsia, polyphagia, polyuria Hematologic/Lymphatic: ABSENT: easy bleeding, easy bruising, lymphadenopathy Allergic/Immunologic: ABSENT: seasonal rhinorrhea Physical Exam Vital Signs: Temp Pulse Resp BP Pulse Ox 98.7 F 73 22 H 110/69 98 06/04/20 08:33 06/04/20 08:33 06/04/20 08:33 06/04/20 08:33 06/04/20 08:33 Intake & Output 06/03/20 06/04/20 06/05/20 06:59 06:59 06:59 Intake Total 5556 Balance 5556 Weight 98.43 kg 98.43 kg General appearance: PRESENT: obese Head exam: PRESENT: atraumatic, normocephalic Eye exam: PRESENT: conjunctiva pink. ABSENT: scleral icterus Ear exam: PRESENT: normal external ear exam Respiratory exam: PRESENT: clear to auscultation ruth, decreased breath sounds - at lung bases Cardiovascular exam: PRESENT: RRR, +S1, +S2 Vascular exam: ABSENT: pallor GI/Abdominal exam: PRESENT: normal bowel sounds, soft. ABSENT: distended, guarding, mass, organolmegaly, rebound, tenderness Extremities exam: ABSENT: pedal edema Neurological exam: PRESENT: alert, awake, oriented to person, oriented to place, oriented to time, oriented to situation, CN II-XII grossly intact. ABSENT: motor sensory deficit Psychiatric exam: ABSENT: agitated, anxious Skin exam: PRESENT: dry, warm Results Laboratory Results: 06/03/20 20:27 06/03/20 20:27 06/03/20 06/03/20 06/03/20 20:27 20:27 20:27 WBC 15.5 H RBC 4.91 Hgb 14.6 Hct 43.0 MCV 88 MCH 29.7 MCHC 33.9 RDW 15.0 H Plt Count 507 H Seg Neutrophils % 67.6 Sodium 138.1 Potassium 3.6 Chloride 105 Carbon Dioxide 21 L Anion Gap 12 BUN 33 H Creatinine 1.75 H Est GFR ( Amer) 46 L Glucose 151 H Lactic Acid 3.8 H Calcium 8.5 Total Bilirubin 1.9 H AST 20 Alkaline Phosphatase 46 Total Protein 5.8 L Albumin 3.1 L Urine Color Urine Appearance Urine pH Ur Specific [place] Urine Protein Urine Glucose (UA) Urine Ketones Urine Blood Urine Nitrite Ur Leukocyte Esterase Urine WBC (Auto) Urine RBC (Auto) 06/03/20 06/04/20 22:37 03:34 WBC RBC Hgb Hct MCV MCH MCHC RDW Plt Count Seg Neutrophils % Sodium Potassium Chloride Carbon Dioxide Anion Gap BUN Creatinine Est GFR ( Amer) Glucose Lactic Acid 0.8 Calcium Total Bilirubin AST Alkaline Phosphatase Total Protein Albumin Urine Color YELLOW Urine Appearance SLIGHTLY-CLOUDY Urine pH 5.0 Ur Specific [place] 1.019 Urine Protein 30 H Urine Glucose (UA) NEGATIVE Urine Ketones NEGATIVE Urine Blood NEGATIVE Urine Nitrite NEGATIVE Ur Leukocyte Esterase NEGATIVE Urine WBC (Auto) 1 Urine RBC (Auto) 1 06/03/20 20:27 Troponin I 0.025 Impressions: Chest X-Ray 06/03/20 20:08 IMPRESSION: Improved aeration of the right midlung zone when compared to the previous exam dated 05/25/2020. Overall, there are no new findings within the chest when compared to the previous exam dated 05/25/2020. Assessment & Plan - Diagnosis (1) COVID-19 virus infection Is this a current diagnosis for this admission?: Yes Plan: See covering attending physician orders for details about care plan. (2) Septic shock due to undetermined organism Is this a current diagnosis for this admission?: Yes Plan: See covering attending physician orders for details about care plan. (3) Persistent atrial fibrillation with rapid ventricular response Is this a current diagnosis for this admission?: Yes Plan: See covering attending physician orders for details about care plan. (4) HTN (hypertension) Qualifiers: Hypertension type: essential hypertension Qualified Code(s): I10 - Essential (primary) hypertension Is this a current diagnosis for this admission?: Yes Plan: See covering attending physician orders for details about care plan. (5) HLD (hyperlipidemia) Qualifiers: Hyperlipidemia type: unspecified Qualified Code(s): E78.5 - Hyperlipidemia, unspecified Is this a current diagnosis for this admission?: Yes Plan: See covering attending physician orders for details about care plan. (6) History of lung cancer in adulthood Is this a current diagnosis for this admission?: Yes Plan: See covering attending physician orders for details about care plan. - Time Time Spent: 50 to 70 Minutes Medications reviewed and adjusted accordingly: Yes Anticipated Discharge Disposition: Home with Home Health Anticipated Discharge Timeframe: within 72 hours - Inpatient Certification Based on my medical assessment, after consideration of the patient's comorbidities, presenting symptoms, or acuity I expect that the services needed warrant INPATIENT care.: Yes I certify that my determination is in accordance with my understanding of Medicare's requirements for reasonable and necessary INPATIENT services [42 CFR 412.3e].: Yes Medical Necessity: Significant Comorbidiites Make Outpatient Treatment Too Risky, Need Close Monitoring Due to Risk of Patient Decompensation, Need For IV Fluids, Need For Continuous Telemetry Monitoring, Need for IV Antibiotics, Risk of Complication if Not Cared For in Hospital, Risk of Diagnosis Which Will Require Inpatient Eval/Care/Monitoring Post Hospital Care: D/C Pewter Caster Documentation - Plan Summary Plan Summary: See covering attending physician orders for details about care plan. Overall prognosis is poor due to age and associated morbidities.
[2020-06-04] MEDS: TAMSULOSIN HCL 0.4 MG CAP.SR.24H PO SCH (21:48)
[2020-06-05] MEDS: NORMAL SALINE 1000 ML 1,000 ML IV PRN ×2 (01:22→14:17)
[2020-06-05] MEDS: PIPERACILLIN SODIUM/TAZOBACTAM 3.375 GM in NORMAL SALINE 100 ML IV SCH ×4 (02:12→20:19)
[2020-06-05] MEDS: BENZONATATE 100 MG CAPSULE PO SCH ×3 (05:49→22:27)
[2020-06-05 05:50] LABS: ABSOLUTE EOSINOPHILS # (AUTO) 0.1 10^3/uL (0.0-0.6); ABSOLUTE LYMPHOCYTES (AUTO) 2.4 10^3/uL (0.5-4.7); ABSOLUTE MONOCYTES (AUTO) 1.6 10^3/uL (0.1-1.4); ABSOLUTE NEUT (AUTO) 11.6 10^3/uL (1.7-8.2); BASOPHILS % (AUTO) 0.3 % (0-2); EOSINOPHILS % (AUTO) 0.3 % (0-6); HEMATOCRIT 34.6 % (37.9-51.0); LYMPHOCYTES % (AUTO) 15.4 % (13-45); MEAN CORPUSCULAR HEMOGLOBIN 30.1 pg (27.0-33.4); MEAN CORPUSCULAR HGB CONC 34.6 g/dL (32.0-36.0); MEAN CORPUSCULAR VOLUME 87 fl (80-97); MONOCYTES % (AUTO) 10.2 % (3-13); PLATELET COUNT 387 10^3/uL (150-450); RED BLOOD COUNT 3.98 10^6/uL (4.35-5.55); RED CELL DISTRIBUTION WIDTH 15.3 % (11.5-14.0); SEGMENTED NEUTROPHILS % (AUTO) 73.8 % (42-78); TOTAL CELLS COUNTED % (AUTO) 100 %; WHITE BLOOD COUNT 15.7 10^3/uL (4.0-10.5)
[2020-06-05 06:05] LABS: ALBUMIN 2.3 g/dL (3.5-5.0); ALKALINE PHOSPHATASE 31 U/L (38-126); ANION GAP 7 (5-19); ASPARTATE AMINO TRANSFERASE 17 U/L (17-59); BILIRUBIN,DIRECT 0.3 mg/dL (0.0-0.4); BILIRUBIN,TOTAL 1.3 mg/dL (0.2-1.3); BLOOD UREA NITROGEN 32 mg/dL (7-20); CALCIUM 7.5 mg/dL (8.4-10.2); CARBON DIOXIDE 19 mmol/L (22-30); CHLORIDE 111 mmol/L (98-107); GLUCOSE 122 mg/dL (75-110); POTASSIUM 3.5 mmol/L (3.6-5.0); TOTAL PROTEIN 4.6 g/dL (6.3-8.2)
[2020-06-05] MEDS: INSULIN LISPRO 100 UNIT/ML 3 ML VIAL SUBCUT SCH ×4 (08:15→22:28)
[2020-06-05] MEDS: ATORVASTATIN CALCIUM 40 MG TABLET PO SCH (09:21)
[2020-06-05] MEDS: ASPIRIN 81 MG TABLET, ENT COATED PO SCH (09:21)
[2020-06-05] MEDS: CHOLECALCIFEROL (D3) 1,000 UNIT (25 MCG) TABLET PO SCH (09:21)
[2020-06-05] MEDS: ZINC SULFATE 220 MG CAPSULE PO SCH (09:21)
[2020-06-05] MEDS: PANTOPRAZOLE SODIUM 40 MG PACKET.DR PO SCH (09:21)
[2020-06-05] MEDS: APIXABAN 5 MG TABLET PO SCH ×2 (09:21→17:45)
[2020-06-05] MEDS: ASCORBIC ACID 500 MG TABLET PO SCH ×2 (09:21→22:27)
[2020-06-05] MEDS: EZETIMIBE 10 MG TABLET PO SCH (09:21)
[2020-06-05] MEDS: DEXAMETHASONE SOD PHOS INJ 10 MG/1 ML VIAL IV SCH (09:21)
[2020-06-05] MEDS: TAMSULOSIN HCL 0.4 MG CAP.SR.24H PO SCH (09:22)
[2020-06-05] MEDS: DUTASTERIDE 0.5 MG CAPSULE PO SCH (09:22)
[2020-06-05] MEDS: VANCOMYCIN HCL 750 MG in DEXTROSE 5%-WATER 250 ML IV SCH ×2 (11:45→22:27)
--- NOTE | 2020-06-05 17:36 | PDOC PROGRESS REPORT ---
Subjective Date:: 06/05/20 Subjective:: Patient reported improvement in his breathing. No chest pain. No fever or chills . No nausea, vomiting, or abdominal pain. Reason For Visit: COVID-19 PNEUMONIA; SEPTIC SHOCK; HX HTN,HLD Physical Exam Vital Signs: Temp Pulse Resp BP Pulse Ox 98.3 F 66 18 105/64 96 06/05/20 12:05 06/05/20 14:00 06/05/20 12:05 06/05/20 12:05 06/05/20 12:05 Intake & Output 06/04/20 06/05/20 06/06/20 06:59 06:59 06:59 Intake Total 5556 1791 2046 Output Total 200 640 Balance 5556 1591 1406 Weight 98.43 kg 96.3 kg General appearance: PRESENT: no acute distress, obese Head exam: PRESENT: atraumatic, normocephalic Eye exam: PRESENT: conjunctiva pink. ABSENT: scleral icterus Respiratory exam: PRESENT: clear to auscultation ruth Cardiovascular exam: PRESENT: RRR, +S1, +S2. ABSENT: diastolic murmur, systolic murmur Vascular exam: ABSENT: pallor GI/Abdominal exam: PRESENT: normal bowel sounds, soft. ABSENT: tenderness Extremities exam: ABSENT: pedal edema Neurological exam: PRESENT: alert, awake, oriented to person, oriented to place, oriented to time, oriented to situation, CN II-XII grossly intact. ABSENT: motor sensory deficit Skin exam: PRESENT: dry, warm Results Laboratory Results: 06/05/20 04:32 06/05/20 04:32 06/05/20 06/05/20 04:32 04:32 WBC 15.7 H RBC 3.98 L Hgb 12.0 L D Hct 34.6 L MCV 87 MCH 30.1 MCHC 34.6 RDW 15.3 H Plt Count 387 Seg Neutrophils % 73.8 Sodium 137.4 Potassium 3.5 L Chloride 111 H Carbon Dioxide 19 L Anion Gap 7 BUN 32 H Creatinine 1.41 H Est GFR ( Amer) 59 L Glucose 122 H Calcium 7.5 L Total Bilirubin 1.3 AST 17 Alkaline Phosphatase 31 L Total Protein 4.6 L Albumin 2.3 L 06/03/20 22:37 Clean Catch Midstream Urine Culture - Final NO GROWTH 2 DAYS 06/03/20 06/04/20 20:27 14:32 Creatine Kinase 35 L Troponin I 0.025 Impressions: Chest X-Ray 06/03/20 20:08 IMPRESSION: Improved aeration of the right midlung zone when compared to the previous exam dated 05/25/2020. Overall, there are no new findings within the chest when compared to the previous exam dated 05/25/2020. Assessment & Plan - Diagnosis (1) COVID-19 virus infection Is this a current diagnosis for this admission?: Yes (2) Septic shock due to undetermined organism Is this a current diagnosis for this admission?: Yes (3) Persistent atrial fibrillation with rapid ventricular response Is this a current diagnosis for this admission?: Yes (4) HTN (hypertension) Qualifiers: Hypertension type: essential hypertension Qualified Code(s): I10 - Essential (primary) hypertension Is this a current diagnosis for this admission?: Yes (5) HLD (hyperlipidemia) Qualifiers: Hyperlipidemia type: unspecified Qualified Code(s): E78.5 - Hyperlipidemia, unspecified Is this a current diagnosis for this admission?: Yes (6) History of lung cancer in adulthood Is this a current diagnosis for this admission?: Yes - Time Time Spent with patient: 25-34 minutes Level of Care: IMCU Medications reviewed and adjusted accordingly: Yes Anticipated discharge: Home with Homehealth Anticipated DC Timeframe: within 72 hours - Inpatient Certification Based on my medical assessment, after consideration of the patient's comorbidities, presenting symptoms, or acuity I expect that the services needed warrant INPATIENT care.: Yes I certify that my determination is in accordance with my understanding of Medicare's requirements for reasonable and necessary INPATIENT services [42 CFR 412.3e].: Yes Medical Necessity: Significant Comorbidiites Make Outpatient Treatment Too Risky, Need Close Monitoring Due to Risk of Patient Decompensation, Need For IV Fluids, Need For Continuous Telemetry Monitoring, Need for IV Antibiotics, Risk of Complication if Not Cared For in Hospital, Risk of Diagnosis Which Will Require Inpatient Eval/Care/Monitoring 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 Follow up on blood culture findings.
[2020-06-06] MEDS: PIPERACILLIN SODIUM/TAZOBACTAM 3.375 GM in NORMAL SALINE 100 ML IV SCH ×4 (02:28→20:11)
[2020-06-06] MEDS: NORMAL SALINE 1000 ML 1,000 ML IV PRN (03:16)
[2020-06-06] MEDS: BENZONATATE 100 MG CAPSULE PO SCH ×3 (05:16→22:16)
[2020-06-06 05:59] LABS: ABSOLUTE EOSINOPHILS # (AUTO) 0.1 10^3/uL (0.0-0.6); ABSOLUTE LYMPHOCYTES (AUTO) 2.3 10^3/uL (0.5-4.7); ABSOLUTE MONOCYTES (AUTO) 1.4 10^3/uL (0.1-1.4); ABSOLUTE NEUT (AUTO) 10.2 10^3/uL (1.7-8.2); BASOPHILS % (AUTO) 0.1 % (0-2); EOSINOPHILS % (AUTO) 0.4 % (0-6); HEMATOCRIT 34.2 % (37.9-51.0); HEMOGLOBIN 11.7 g/dL (13.5-17.0); LYMPHOCYTES % (AUTO) 16.3 % (13-45); MEAN CORPUSCULAR HEMOGLOBIN 30.4 pg (27.0-33.4); MEAN CORPUSCULAR HGB CONC 34.4 g/dL (32.0-36.0); MEAN CORPUSCULAR VOLUME 88 fl (80-97); MONOCYTES % (AUTO) 9.9 % (3-13); PLATELET COUNT 392 10^3/uL (150-450); RED BLOOD COUNT 3.87 10^6/uL (4.35-5.55); RED CELL DISTRIBUTION WIDTH 15.3 % (11.5-14.0); SEGMENTED NEUTROPHILS % (AUTO) 73.3 % (42-78); TOTAL CELLS COUNTED % (AUTO) 100 %; WHITE BLOOD COUNT 13.9 10^3/uL (4.0-10.5)
[2020-06-06 06:32] LABS: ALBUMIN 2.3 g/dL (3.5-5.0); ALKALINE PHOSPHATASE 30 U/L (38-126); ANION GAP 5 (5-19); ASPARTATE AMINO TRANSFERASE 17 U/L (17-59); BILIRUBIN,DIRECT 0.3 mg/dL (0.0-0.4); BILIRUBIN,TOTAL 1.1 mg/dL (0.2-1.3); BLOOD UREA NITROGEN 23 mg/dL (7-20); CALCIUM 7.7 mg/dL (8.4-10.2); CARBON DIOXIDE 23 mmol/L (22-30); CHLORIDE 111 mmol/L (98-107); GLUCOSE 131 mg/dL (75-110); POTASSIUM 3.9 mmol/L (3.6-5.0); TOTAL PROTEIN 4.5 g/dL (6.3-8.2)
[2020-06-06] MEDS: INSULIN LISPRO 100 UNIT/ML 3 ML VIAL SUBCUT SCH ×4 (08:04→22:16)
[2020-06-06] MEDS: TAMSULOSIN HCL 0.4 MG CAP.SR.24H PO SCH (09:59)
[2020-06-06] MEDS: ASPIRIN 81 MG TABLET, ENT COATED PO SCH (09:59)
[2020-06-06] MEDS: ATORVASTATIN CALCIUM 40 MG TABLET PO SCH (09:59)
[2020-06-06] MEDS: APIXABAN 5 MG TABLET PO SCH ×2 (09:59→17:13)
[2020-06-06] MEDS: CHOLECALCIFEROL (D3) 1,000 UNIT (25 MCG) TABLET PO SCH (09:59)
[2020-06-06] MEDS: ZINC SULFATE 220 MG CAPSULE PO SCH (09:59)
[2020-06-06] MEDS: EZETIMIBE 10 MG TABLET PO SCH (09:59)
[2020-06-06] MEDS: DUTASTERIDE 0.5 MG CAPSULE PO SCH (09:59)
[2020-06-06] MEDS: DEXAMETHASONE SOD PHOS INJ 10 MG/1 ML VIAL IV SCH (10:00)
[2020-06-06] MEDS: ASCORBIC ACID 500 MG TABLET PO SCH ×2 (10:00→22:16)
[2020-06-06] MEDS: VANCOMYCIN HCL 750 MG in DEXTROSE 5%-WATER 250 ML IV SCH ×2 (10:00→22:17)
[2020-06-06] MEDS: PANTOPRAZOLE SODIUM 40 MG PACKET.DR PO SCH (10:00)
--- NOTE | 2020-06-06 10:17 | PDOC PROGRESS REPORT ---
Subjective Date:: 06/06/20 Subjective:: Patient is currently doing well Denied any chest pain no shortness of the breath Patient was admitted for the Covid and a community-acquired pneumonia Reason For Visit: COVID-19 PNEUMONIA; SEPTIC SHOCK; HX HTN,HLD Physical Exam Vital Signs: Temp Pulse Resp BP Pulse Ox 97.7 F 62 20 123/71 100 06/06/20 03:44 06/06/20 07:00 06/06/20 03:44 06/06/20 03:44 06/06/20 03:44 Intake & Output 06/05/20 06/06/20 06/07/20 06:59 06:59 06:59 Intake Total 1791 3796 Output Total 200 1065 Balance 1591 2731 Weight 96.3 kg 100 kg General appearance: PRESENT: no acute distress, well-developed, well-nourished Head exam: PRESENT: atraumatic, normocephalic Eye exam: PRESENT: conjunctiva pink, EOMI, PERRLA. ABSENT: scleral icterus Ear exam: PRESENT: normal external ear exam Mouth exam: PRESENT: moist, tongue midline Neck exam: PRESENT: full ROM. ABSENT: carotid bruit, JVD, lymphadenopathy, thyromegaly Respiratory exam: PRESENT: clear to auscultation ruth Cardiovascular exam: PRESENT: RRR. ABSENT: diastolic murmur, rubs, systolic murmur Pulses: PRESENT: normal dorsalis pedis pul, +2 pedal pulses bilateral Vascular exam: PRESENT: normal capillary refill GI/Abdominal exam: PRESENT: normal bowel sounds, soft. ABSENT: distended, guarding, mass, organolmegaly, rebound, tenderness Rectal exam: PRESENT: deferred Neurological exam: PRESENT: alert, awake, oriented to person, oriented to place, oriented to time, oriented to situation, CN II-XII grossly intact. ABSENT: motor sensory deficit Psychiatric exam: PRESENT: appropriate affect, normal mood. ABSENT: homicidal ideation, suicidal ideation Skin exam: PRESENT: dry, intact, warm. ABSENT: cyanosis, rash Results Laboratory Results: 06/06/20 05:22 06/06/20 05:22 06/06/20 06/06/20 05:22 05:22 WBC 13.9 H RBC 3.87 L Hgb 11.7 L Hct 34.2 L MCV 88 MCH 30.4 MCHC 34.4 RDW 15.3 H Plt Count 392 Seg Neutrophils % 73.3 Sodium 138.7 Potassium 3.9 Chloride 111 H Carbon Dioxide 23 Anion Gap 5 BUN 23 H Creatinine 1.39 H Est GFR ( Amer) > 60 Glucose 131 H Calcium 7.7 L Total Bilirubin 1.1 AST 17 Alkaline Phosphatase 30 L Total Protein 4.5 L Albumin 2.3 L 06/03/20 22:37 Clean Catch Midstream Urine Culture - Final NO GROWTH 2 DAYS 06/03/20 06/04/20 20:27 14:32 Creatine Kinase 35 L Troponin I 0.025 Impressions: Chest X-Ray 06/03/20 20:08 IMPRESSION: Improved aeration of the right midlung zone when compared to the previous exam dated 05/25/2020. Overall, there are no new findings within the chest when compared to the previous exam dated 05/25/2020. Assessment & Plan - Diagnosis (1) COVID-19 virus infection Is this a current diagnosis for this admission?: Yes (2) HLD (hyperlipidemia) Qualifiers: Hyperlipidemia type: unspecified Qualified Code(s): E78.5 - Hyperlipidemia, unspecified Is this a current diagnosis for this admission?: Yes (3) HTN (hypertension) Qualifiers: Hypertension type: essential hypertension Qualified Code(s): I10 - Essential (primary) hypertension Is this a current diagnosis for this admission?: Yes (4) History of lung cancer in adulthood Is this a current diagnosis for this admission?: Yes (5) SIRS (systemic inflammatory response syndrome) Is this a current diagnosis for this admission?: Yes (6) Septic shock due to undetermined organism Is this a current diagnosis for this admission?: Yes - Time Time Spent with patient: 15-24 minutes Level of Care: IMCU Medications reviewed and adjusted accordingly: Yes Anticipated discharge: Home with Homehealth Anticipated DC Timeframe: within 72 hours - Plan Summary Plan Summary: Patient's blood pressure is all improving continues the IV antibiotic continues to steroid continues to monitor we will wait for the cultures
[2020-06-06 22:13] LABS: VANCOMYCIN,TROUGH 11.1 ug/mL (5.0-20.0)
[2020-06-07] MEDS: PIPERACILLIN SODIUM/TAZOBACTAM 3.375 GM in NORMAL SALINE 100 ML IV SCH ×4 (03:23→20:58)
[2020-06-07 05:18] LABS: ABSOLUTE BASOPHILS # (AUTO) 0.1 10^3/uL (0.0-0.2); ABSOLUTE EOSINOPHILS # (AUTO) 0.1 10^3/uL (0.0-0.6); ABSOLUTE LYMPHOCYTES (AUTO) 2.3 10^3/uL (0.5-4.7); ABSOLUTE MONOCYTES (AUTO) 1.3 10^3/uL (0.1-1.4); ABSOLUTE NEUT (AUTO) 9.7 10^3/uL (1.7-8.2); BASOPHILS % (AUTO) 0.4 % (0-2); EOSINOPHILS % (AUTO) 0.8 % (0-6); HEMATOCRIT 36.2 % (37.9-51.0); HEMOGLOBIN 12.2 g/dL (13.5-17.0); LYMPHOCYTES % (AUTO) 17.3 % (13-45); MEAN CORPUSCULAR HEMOGLOBIN 29.7 pg (27.0-33.4); MEAN CORPUSCULAR HGB CONC 33.7 g/dL (32.0-36.0); MEAN CORPUSCULAR VOLUME 88 fl (80-97); MONOCYTES % (AUTO) 9.7 % (3-13); PLATELET COUNT 388 10^3/uL (150-450); RED BLOOD COUNT 4.12 10^6/uL (4.35-5.55); RED CELL DISTRIBUTION WIDTH 15.2 % (11.5-14.0); SEGMENTED NEUTROPHILS % (AUTO) 71.8 % (42-78); TOTAL CELLS COUNTED % (AUTO) 100 %; WHITE BLOOD COUNT 13.5 10^3/uL (4.0-10.5)
[2020-06-07 05:26] LABS: ALBUMIN 2.4 g/dL (3.5-5.0); ALKALINE PHOSPHATASE 29 U/L (38-126); ANION GAP 6 (5-19); ASPARTATE AMINO TRANSFERASE 17 U/L (17-59); BILIRUBIN,DIRECT 0.1 mg/dL (0.0-0.4); BILIRUBIN,TOTAL 0.9 mg/dL (0.2-1.3); BLOOD UREA NITROGEN 18 mg/dL (7-20); CALCIUM 7.8 mg/dL (8.4-10.2); CARBON DIOXIDE 22 mmol/L (22-30); CHLORIDE 111 mmol/L (98-107); GLUCOSE 132 mg/dL (75-110); POTASSIUM 3.6 mmol/L (3.6-5.0); TOTAL PROTEIN 4.7 g/dL (6.3-8.2)
[2020-06-07] MEDS: BENZONATATE 100 MG CAPSULE PO SCH ×3 (05:39→21:05)
[2020-06-07] MEDS: INSULIN LISPRO 100 UNIT/ML 3 ML VIAL SUBCUT SCH ×4 (08:10→21:11)
--- NOTE | 2020-06-07 08:32 | PDOC PROGRESS REPORT ---
Subjective Date:: 06/07/20 Subjective:: Patient is currently doing well Denied any chest pain no shortness of the breath Walk on the room with 100% oxygen's Reason For Visit: COVID-19 PNEUMONIA; SEPTIC SHOCK; HX HTN,HLD Physical Exam Vital Signs: Temp Pulse Resp BP Pulse Ox 97.6 F 66 20 129/80 H 100 06/07/20 03:30 06/07/20 07:00 06/07/20 03:30 06/07/20 03:30 06/07/20 03:30 Intake & Output 06/06/20 06/07/20 06/08/20 06:59 06:59 06:59 Intake Total 3796 2066 Output Total 1065 675 Balance 2731 1391 Weight 100 kg 101.4 kg General appearance: PRESENT: no acute distress, well-developed, well-nourished Head exam: PRESENT: atraumatic, normocephalic Eye exam: PRESENT: conjunctiva pink, EOMI, PERRLA. ABSENT: scleral icterus Ear exam: PRESENT: normal external ear exam Mouth exam: PRESENT: moist, tongue midline Neck exam: PRESENT: full ROM. ABSENT: carotid bruit, JVD, lymphadenopathy, thyromegaly Cardiovascular exam: PRESENT: RRR. ABSENT: diastolic murmur, rubs, systolic murmur Pulses: PRESENT: normal dorsalis pedis pul, +2 pedal pulses bilateral Vascular exam: PRESENT: normal capillary refill GI/Abdominal exam: PRESENT: normal bowel sounds, soft. ABSENT: distended, guarding, mass, organolmegaly, rebound, tenderness Rectal exam: PRESENT: deferred Neurological exam: PRESENT: alert, awake, oriented to person, oriented to place, oriented to time, oriented to situation, CN II-XII grossly intact. ABSENT: motor sensory deficit Psychiatric exam: PRESENT: appropriate affect, normal mood. ABSENT: homicidal ideation, suicidal ideation Skin exam: PRESENT: dry, intact, warm. ABSENT: cyanosis, rash Results Laboratory Results: 06/07/20 04:19 06/07/20 04:19 06/07/20 06/07/20 04:19 04:19 WBC 13.5 H RBC 4.12 L Hgb 12.2 L Hct 36.2 L MCV 88 MCH 29.7 MCHC 33.7 RDW 15.2 H Plt Count 388 Seg Neutrophils % 71.8 Sodium 138.8 Potassium 3.6 Chloride 111 H Carbon Dioxide 22 Anion Gap 6 BUN 18 Creatinine 1.12 Est GFR ( Amer) > 60 Glucose 132 H Calcium 7.8 L Total Bilirubin 0.9 AST 17 Alkaline Phosphatase 29 L Total Protein 4.7 L Albumin 2.4 L 06/03/20 06/04/20 20:27 14:32 Creatine Kinase 35 L Troponin I 0.025 Impressions: Chest X-Ray 06/03/20 20:08 IMPRESSION: Improved aeration of the right midlung zone when compared to the previous exam dated 05/25/2020. Overall, there are no new findings within the chest when compared to the previous exam dated 05/25/2020. Assessment & Plan - Diagnosis (1) COVID-19 virus infection Is this a current diagnosis for this admission?: Yes (2) HLD (hyperlipidemia) Qualifiers: Hyperlipidemia type: unspecified Qualified Code(s): E78.5 - Hyperlipidemia, unspecified Is this a current diagnosis for this admission?: Yes (3) HTN (hypertension) Qualifiers: Hypertension type: essential hypertension Qualified Code(s): I10 - Essential (primary) hypertension Is this a current diagnosis for this admission?: Yes (4) History of lung cancer in adulthood Is this a current diagnosis for this admission?: Yes (5) SIRS (systemic inflammatory response syndrome) Is this a current diagnosis for this admission?: Yes (6) Septic shock due to undetermined organism Is this a current diagnosis for this admission?: Yes - Time Time Spent with patient: 15-24 minutes Level of Care: IMCU Medications reviewed and adjusted accordingly: Yes Anticipated discharge: Home with Homehealth Anticipated DC Timeframe: within 48 hours - Plan Summary Plan Summary: Patient is currently doing well we will discontinues the vancomycin with all culture is negative continues IV Zosyn
[2020-06-07] MEDS: ASCORBIC ACID 500 MG TABLET PO SCH ×2 (09:32→21:04)
[2020-06-07] MEDS: ATORVASTATIN CALCIUM 40 MG TABLET PO SCH (09:32)
[2020-06-07] MEDS: ZINC SULFATE 220 MG CAPSULE PO SCH (09:32)
[2020-06-07] MEDS: TAMSULOSIN HCL 0.4 MG CAP.SR.24H PO SCH (09:32)
[2020-06-07] MEDS: EZETIMIBE 10 MG TABLET PO SCH (09:33)
[2020-06-07] MEDS: CHOLECALCIFEROL (D3) 1,000 UNIT (25 MCG) TABLET PO SCH (09:33)
[2020-06-07] MEDS: ASPIRIN 81 MG TABLET, ENT COATED PO SCH ×2 (09:33→10:06)
[2020-06-07] MEDS: DEXAMETHASONE SOD PHOS INJ 10 MG/1 ML VIAL IV SCH (09:33)
[2020-06-07] MEDS: APIXABAN 5 MG TABLET PO SCH ×2 (09:33→17:51)
[2020-06-07] MEDS: DUTASTERIDE 0.5 MG CAPSULE PO SCH (09:35)
[2020-06-07] MEDS: PANTOPRAZOLE SODIUM 40 MG PACKET.DR PO SCH (09:35)
[2020-06-07] MEDS ORDERED: VANCOMYCIN HCL 1,000 MG in DEXTROSE 5%-WATER 250 ML IV SCH (10:00)
[2020-06-07] MEDS: NORMAL SALINE 1000 ML 1,000 ML IV PRN (11:00)
[2020-06-08] MEDS: NORMAL SALINE 1000 ML 1,000 ML IV PRN (02:43)
[2020-06-08] MEDS: PIPERACILLIN SODIUM/TAZOBACTAM 3.375 GM in NORMAL SALINE 100 ML IV SCH ×4 (02:45→21:01)
[2020-06-08 05:16] LABS: ABSOLUTE EOSINOPHILS # (AUTO) 0.1 10^3/uL (0.0-0.6); ABSOLUTE LYMPHOCYTES (AUTO) 2.4 10^3/uL (0.5-4.7); ABSOLUTE MONOCYTES (AUTO) 1.3 10^3/uL (0.1-1.4); ABSOLUTE NEUT (AUTO) 10.4 10^3/uL (1.7-8.2); BASOPHILS % (AUTO) 0.1 % (0-2); EOSINOPHILS % (AUTO) 0.6 % (0-6); HEMATOCRIT 35.4 % (37.9-51.0); HEMOGLOBIN 12.2 g/dL (13.5-17.0); LYMPHOCYTES % (AUTO) 16.9 % (13-45); MEAN CORPUSCULAR HEMOGLOBIN 30.4 pg (27.0-33.4); MEAN CORPUSCULAR HGB CONC 34.4 g/dL (32.0-36.0); MEAN CORPUSCULAR VOLUME 88 fl (80-97); MONOCYTES % (AUTO) 9.1 % (3-13); PLATELET COUNT 390 10^3/uL (150-450); RED CELL DISTRIBUTION WIDTH 15.3 % (11.5-14.0); SEGMENTED NEUTROPHILS % (AUTO) 73.3 % (42-78); TOTAL CELLS COUNTED % (AUTO) 100 %; WHITE BLOOD COUNT 14.2 10^3/uL (4.0-10.5)
[2020-06-08 05:36] LABS: ALBUMIN 2.3 g/dL (3.5-5.0); ALKALINE PHOSPHATASE 29 U/L (38-126); ASPARTATE AMINO TRANSFERASE 20 U/L (17-59); BILIRUBIN,DIRECT 0.2 mg/dL (0.0-0.4); BLOOD UREA NITROGEN 17 mg/dL (7-20); CALCIUM 7.7 mg/dL (8.4-10.2); CARBON DIOXIDE 24 mmol/L (22-30); GLUCOSE 123 mg/dL (75-110); POTASSIUM 3.5 mmol/L (3.6-5.0); TOTAL PROTEIN 4.6 g/dL (6.3-8.2)
[2020-06-08 05:43] LABS: CHLORIDE 113 mmol/L (98-107)
[2020-06-08 05:47] LABS: ANION GAP 3 (5-19)
[2020-06-08] MEDS: BENZONATATE 100 MG CAPSULE PO SCH ×3 (06:20→21:01)
[2020-06-08] MEDS: INSULIN LISPRO 100 UNIT/ML 3 ML VIAL SUBCUT SCH ×4 (09:12→22:39)
[2020-06-08] MEDS: ASPIRIN 81 MG TABLET, ENT COATED PO SCH (09:39)
[2020-06-08] MEDS: EZETIMIBE 10 MG TABLET PO SCH (09:39)
[2020-06-08] MEDS: ATORVASTATIN CALCIUM 40 MG TABLET PO SCH (09:39)
[2020-06-08] MEDS: ZINC SULFATE 220 MG CAPSULE PO SCH (09:39)
[2020-06-08] MEDS: CHOLECALCIFEROL (D3) 1,000 UNIT (25 MCG) TABLET PO SCH (09:39)
[2020-06-08] MEDS: DUTASTERIDE 0.5 MG CAPSULE PO SCH (09:39)
[2020-06-08] MEDS: ASCORBIC ACID 500 MG TABLET PO SCH ×2 (09:39→21:01)
[2020-06-08] MEDS: PANTOPRAZOLE SODIUM 40 MG PACKET.DR PO SCH (09:39)
[2020-06-08] MEDS: APIXABAN 5 MG TABLET PO SCH ×2 (09:39→17:00)
[2020-06-08] MEDS: DEXAMETHASONE SOD PHOS INJ 10 MG/1 ML VIAL IV SCH (09:39)
[2020-06-08] MEDS: TAMSULOSIN HCL 0.4 MG CAP.SR.24H PO SCH (09:39)
--- NOTE | 2020-06-08 09:45 | RADIOLOGY REPORT (SQ) ---
EXAM DESCRIPTION: CHEST SINGLE VIEW IMAGES COMPLETED DATE/TIME: 06/08/2020 9:10 am REASON FOR STUDY: PNA COMPARISON: 06/03/2020. EXAM PARAMETERS: NUMBER OF VIEWS: One view. TECHNIQUE: Single frontal radiographic view of the chest acquired. RADIATION DOSE: NA LIMITATIONS: None. FINDINGS: LUNGS AND PLEURA: Stable surgical changes on the right. Faint parenchymal density in the left lung base. No masses or pneumothorax. No pleural effusion. MEDIASTINUM AND HILAR STRUCTURES: No masses. Contour normal. HEART AND VASCULAR STRUCTURES: Heart normal in size. Normal vasculature. BONES: No acute findings. Surgical changes on the right. HARDWARE: Surgical clips. OTHER: No other significant finding. IMPRESSION: NEW FAINT PARENCHYMAL DENSITY IN THE LEFT LUNG BASE. COULD BE DUE TO DEVELOPING PNEUMON IA. TECHNICAL DOCUMENTATION: JOB ID: [id number] 2010 [employer]- All Rights Reserved Reading location - IP/workstation name: [email or web address]
--- NOTE | 2020-06-08 10:22 | PDOC PROGRESS REPORT ---
Subjective Date:: 06/08/20 Subjective:: Patient is currently doing much better Patient's denied any chest pain no shortness of breath Patient is currently on room air Blood pressure is all stable No fever no chills We will discontinues the IV fluid Chest x-ray still persistence with the pneumonia will continues the IV antibiotic add the doxycycline Reason For Visit: COVID-19 PNEUMONIA; SEPTIC SHOCK; HX HTN,HLD Physical Exam Vital Signs: Temp Pulse Resp BP Pulse Ox 97.8 F 70 18 150/90 H 100 06/08/20 08:38 06/08/20 08:13 06/08/20 08:13 06/08/20 08:13 06/08/20 08:13 Intake & Output 06/07/20 06/08/20 06/09/20 06:59 06:59 06:59 Intake Total 2066 3363 910 Output Total 675 635 Balance 1391 2728 910 Weight 101.4 kg 103.2 kg General appearance: PRESENT: no acute distress, well-developed, well-nourished Head exam: PRESENT: atraumatic, normocephalic Eye exam: PRESENT: conjunctiva pink, EOMI, PERRLA. ABSENT: scleral icterus Ear exam: PRESENT: normal external ear exam Mouth exam: PRESENT: moist, tongue midline Neck exam: PRESENT: full ROM. ABSENT: carotid bruit, JVD, lymphadenopathy, thyromegaly Respiratory exam: PRESENT: clear to auscultation ruth Cardiovascular exam: PRESENT: RRR. ABSENT: diastolic murmur, rubs, systolic murmur Pulses: PRESENT: normal dorsalis pedis pul, +2 pedal pulses bilateral Vascular exam: PRESENT: normal capillary refill GI/Abdominal exam: PRESENT: normal bowel sounds, soft. ABSENT: distended, guarding, mass, organolmegaly, rebound, tenderness Rectal exam: PRESENT: deferred Musculoskeletal exam: PRESENT: ambulatory Neurological exam: PRESENT: alert, awake, oriented to person, oriented to place, oriented to time, oriented to situation, CN II-XII grossly intact. ABSENT: motor sensory deficit Psychiatric exam: PRESENT: appropriate affect, normal mood. ABSENT: homicidal ideation, suicidal ideation Skin exam: PRESENT: dry, intact, warm. ABSENT: cyanosis, rash Results Laboratory Results: 06/08/20 04:27 06/08/20 04:27 06/08/20 06/08/20 04:27 04:27 WBC 14.2 H RBC 4.00 L Hgb 12.2 L Hct 35.4 L MCV 88 MCH 30.4 MCHC 34.4 RDW 15.3 H Plt Count 390 Seg Neutrophils % 73.3 Sodium 140.2 Potassium 3.5 L Chloride 113 H Carbon Dioxide 24 Anion Gap 3 L BUN 17 Creatinine 1.02 Est GFR ( Amer) > 60 Glucose 123 H Calcium 7.7 L Total Bilirubin 1.0 AST 20 Alkaline Phosphatase 29 L Total Protein 4.6 L Albumin 2.3 L 06/03/20 06/04/20 20:27 14:32 Creatine Kinase 35 L Troponin I 0.025 Impressions: Chest X-Ray 06/08/20 00:00 IMPRESSION: NEW FAINT PARENCHYMAL DENSITY IN THE LEFT LUNG BASE. COULD BE DUE TO DEVELOPING PNEUMONIA. Assessment & Plan - Diagnosis (1) COVID-19 virus infection Is this a current diagnosis for this admission?: Yes (2) HLD (hyperlipidemia) Qualifiers: Hyperlipidemia type: unspecified Qualified Code(s): E78.5 - Hyperlipidemia, unspecified Is this a current diagnosis for this admission?: Yes (3) HTN (hypertension) Qualifiers: Hypertension type: essential hypertension Qualified Code(s): I10 - Essential (primary) hypertension Is this a current diagnosis for this admission?: Yes (4) History of lung cancer in adulthood Is this a current diagnosis for this admission?: Yes (5) SIRS (systemic inflammatory response syndrome) Is this a current diagnosis for this admission?: Yes (6) Septic shock due to undetermined organism Is this a current diagnosis for this admission?: Yes - Time Time Spent with patient: 15-24 minutes Level of Care: IMCU Medications reviewed and adjusted accordingly: Yes Anticipated discharge: Home with Homehealth Anticipated DC Timeframe: within 48 hours - Plan Summary Plan Summary: Continues to current medications we will add the doxycycline continues to monitor
[2020-06-08] MEDS ORDERED: POTASSIUM CHLORIDE 10 MEQ TABLET.ER PO ONE (11:00)
[2020-06-08] MEDS: DOXYCYCLINE HYCLATE 100 MG TABLET PO SCH (21:01)
[2020-06-08 22:21] LABS: VANCOMYCIN,TROUGH < 5.0 ug/mL (5.0-20.0)
[2020-06-09] MEDS: PIPERACILLIN SODIUM/TAZOBACTAM 3.375 GM in NORMAL SALINE 100 ML IV SCH ×4 (03:30→20:15)
[2020-06-09 05:08] LABS: ABSOLUTE EOSINOPHILS # (AUTO) 0.1 10^3/uL (0.0-0.6); ABSOLUTE LYMPHOCYTES (AUTO) 2.9 10^3/uL (0.5-4.7); ABSOLUTE MONOCYTES (AUTO) 1.2 10^3/uL (0.1-1.4); ABSOLUTE NEUT (AUTO) 11.3 10^3/uL (1.7-8.2); BASOPHILS % (AUTO) 0.1 % (0-2); EOSINOPHILS % (AUTO) 0.5 % (0-6); HEMATOCRIT 35.4 % (37.9-51.0); HEMOGLOBIN 12.3 g/dL (13.5-17.0); LYMPHOCYTES % (AUTO) 18.7 % (13-45); MEAN CORPUSCULAR HEMOGLOBIN 30.4 pg (27.0-33.4); MEAN CORPUSCULAR HGB CONC 34.7 g/dL (32.0-36.0); MEAN CORPUSCULAR VOLUME 88 fl (80-97); PLATELET COUNT 392 10^3/uL (150-450); RED BLOOD COUNT 4.05 10^6/uL (4.35-5.55); RED CELL DISTRIBUTION WIDTH 15.2 % (11.5-14.0); SEGMENTED NEUTROPHILS % (AUTO) 72.7 % (42-78); TOTAL CELLS COUNTED % (AUTO) 100 %; WHITE BLOOD COUNT 15.5 10^3/uL (4.0-10.5)
[2020-06-09 05:28] LABS: ALBUMIN 2.4 g/dL (3.5-5.0); ALKALINE PHOSPHATASE 32 U/L (38-126); ANION GAP 6 (5-19); ASPARTATE AMINO TRANSFERASE 26 U/L (17-59); BILIRUBIN,DIRECT 0.1 mg/dL (0.0-0.4); BILIRUBIN,TOTAL 1.1 mg/dL (0.2-1.3); BLOOD UREA NITROGEN 17 mg/dL (7-20); CALCIUM 7.9 mg/dL (8.4-10.2); CARBON DIOXIDE 22 mmol/L (22-30); CHLORIDE 111 mmol/L (98-107); GLUCOSE 126 mg/dL (75-110); POTASSIUM 3.6 mmol/L (3.6-5.0); TOTAL PROTEIN 4.8 g/dL (6.3-8.2)
[2020-06-09] MEDS: BENZONATATE 100 MG CAPSULE PO SCH ×3 (06:00→22:08)
[2020-06-09] MEDS: INSULIN LISPRO 100 UNIT/ML 3 ML VIAL SUBCUT SCH ×4 (08:02→22:14)
--- NOTE | 2020-06-09 09:10 | PDOC PROGRESS REPORT ---
Subjective Date:: 06/09/20 Subjective:: Patient is currently doing much better His white count is still elevated most likely possible from the steroid Patient having no fever no chills Patient's otherwise denied any complaint wants to go home Reason For Visit: COVID-19 PNEUMONIA; SEPTIC SHOCK; HX HTN,HLD Physical Exam Vital Signs: Temp Pulse Resp BP Pulse Ox 97.8 F 74 20 139/78 H 98 06/09/20 03:50 06/09/20 07:00 06/09/20 03:50 06/09/20 03:50 06/09/20 03:50 Intake & Output 06/08/20 06/09/20 06/10/20 06:59 06:59 06:59 Intake Total 3363 2213 Output Total 635 155 Balance 2728 2058 Weight 103.2 kg 103.9 kg General appearance: PRESENT: no acute distress, well-developed, well-nourished Head exam: PRESENT: atraumatic, normocephalic Eye exam: PRESENT: conjunctiva pink, EOMI, PERRLA. ABSENT: scleral icterus Ear exam: PRESENT: normal external ear exam Mouth exam: PRESENT: moist, tongue midline Neck exam: PRESENT: full ROM. ABSENT: carotid bruit, JVD, lymphadenopathy, thyromegaly Respiratory exam: PRESENT: clear to auscultation ruth Cardiovascular exam: PRESENT: RRR. ABSENT: diastolic murmur, rubs, systolic murmur Pulses: PRESENT: normal dorsalis pedis pul, +2 pedal pulses bilateral Vascular exam: PRESENT: normal capillary refill GI/Abdominal exam: PRESENT: normal bowel sounds, soft. ABSENT: distended, guarding, mass, organolmegaly, rebound, tenderness Rectal exam: PRESENT: deferred Neurological exam: PRESENT: alert, awake, oriented to person, oriented to place, oriented to time, oriented to situation, CN II-XII grossly intact. ABSENT: m otor sensory deficit Psychiatric exam: PRESENT: appropriate affect, normal mood. ABSENT: homicidal ideation, suicidal ideation Skin exam: PRESENT: dry, intact, warm. ABSENT: cyanosis, rash Results Laboratory Results: 06/09/20 04:26 06/09/20 04:26 06/09/20 06/09/20 04:26 04:26 WBC 15.5 H RBC 4.05 L Hgb 12.3 L Hct 35.4 L MCV 88 MCH 30.4 MCHC 34.7 RDW 15.2 H Plt Count 392 Seg Neutrophils % 72.7 Sodium 138.5 Potassium 3.6 Chloride 111 H Carbon Dioxide 22 Anion Gap 6 BUN 17 Creatinine 0.97 Est GFR ( Amer) > 60 Glucose 126 H Calcium 7.9 L Total Bilirubin 1.1 AST 26 Alkaline Phosphatase 32 L Total Protein 4.8 L Albumin 2.4 L 06/03/20 21:29 Blood Blood Culture - Final NO GROWTH IN 5 DAYS 06/03/20 20:27 Blood Blood Culture - Final NO GROWTH IN 5 DAYS 06/03/20 06/04/20 20:27 14:32 Creatine Kinase 35 L Troponin I 0.025 Impressions: Chest X-Ray 06/08/20 00:00 IMPRESSION: NEW FAINT PARENCHYMAL DENSITY IN THE LEFT LUNG BASE. COULD BE DUE TO DEVELOPING PNEUMONIA. Assessment & Plan - Diagnosis (1) COVID-19 virus infection Is this a current diagnosis for this admission?: Yes (2) HLD (hyperlipidemia) Qualifiers: Hyperlipidemia type: unspecified Qualified Code(s): E78.5 - Hyperlipidemia, unspecified Is this a current diagnosis for this admission?: Yes (3) HTN (hypertension) Qualifiers: Hypertension type: essential hypertension Qualified Code(s): I10 - Essential (primary) hypertension Is this a current diagnosis for this admission?: Yes (4) History of lung cancer in adulthood Is this a current diagnosis for this admission?: Yes (5) SIRS (systemic inflammatory response syndrome) Is this a current diagnosis for this admission?: Yes (6) Septic shock due to undetermined organism Is this a current diagnosis for this admission?: Yes - Time Time Spent with patient: 15-24 minutes Level of Care: IMCU Medications reviewed and adjusted accordingly: Yes Anticipated discharge: Home with Homehealth Anticipated DC Timeframe: within 24 hours - Plan Summary Plan Summary: Hopefully will discharge the patient's tomorrow
[2020-06-09] MEDS: ASCORBIC ACID 500 MG TABLET PO SCH ×2 (09:29→22:08)
[2020-06-09] MEDS: DEXAMETHASONE SOD PHOS INJ 10 MG/1 ML VIAL IV SCH (09:30)
[2020-06-09] MEDS: EZETIMIBE 10 MG TABLET PO SCH (09:30)
[2020-06-09] MEDS: ZINC SULFATE 220 MG CAPSULE PO SCH (09:30)
[2020-06-09] MEDS: DUTASTERIDE 0.5 MG CAPSULE PO SCH (09:30)
[2020-06-09] MEDS: CHOLECALCIFEROL (D3) 1,000 UNIT (25 MCG) TABLET PO SCH (09:30)
[2020-06-09] MEDS: APIXABAN 5 MG TABLET PO SCH ×2 (09:30→17:15)
[2020-06-09] MEDS: ATORVASTATIN CALCIUM 40 MG TABLET PO SCH (09:30)
[2020-06-09] MEDS: PANTOPRAZOLE SODIUM 40 MG PACKET.DR PO SCH (09:30)
[2020-06-09] MEDS: DOXYCYCLINE HYCLATE 100 MG TABLET PO SCH ×2 (09:30→22:08)
[2020-06-09] MEDS: ASPIRIN 81 MG TABLET, ENT COATED PO SCH (09:30)
[2020-06-09] MEDS: TAMSULOSIN HCL 0.4 MG CAP.SR.24H PO SCH (09:30)
[2020-06-10] MEDS: PIPERACILLIN SODIUM/TAZOBACTAM 3.375 GM in NORMAL SALINE 100 ML IV SCH ×2 (03:16→11:11)
[2020-06-10 05:07] LABS: ABSOLUTE EOSINOPHILS # (AUTO) 0.2 10^3/uL (0.0-0.6); ABSOLUTE LYMPHOCYTES (AUTO) 2.5 10^3/uL (0.5-4.7); ABSOLUTE MONOCYTES (AUTO) 1.2 10^3/uL (0.1-1.4); ABSOLUTE NEUT (AUTO) 10.1 10^3/uL (1.7-8.2); BASOPHILS % (AUTO) 0.3 % (0-2); EOSINOPHILS % (AUTO) 1.4 % (0-6); HEMATOCRIT 34.5 % (37.9-51.0); HEMOGLOBIN 11.9 g/dL (13.5-17.0); LYMPHOCYTES % (AUTO) 18.1 % (13-45); MEAN CORPUSCULAR HEMOGLOBIN 30.4 pg (27.0-33.4); MEAN CORPUSCULAR HGB CONC 34.6 g/dL (32.0-36.0); MEAN CORPUSCULAR VOLUME 88 fl (80-97); MONOCYTES % (AUTO) 8.7 % (3-13); PLATELET COUNT 359 10^3/uL (150-450); RED BLOOD COUNT 3.92 10^6/uL (4.35-5.55); RED CELL DISTRIBUTION WIDTH 15.3 % (11.5-14.0); SEGMENTED NEUTROPHILS % (AUTO) 71.5 % (42-78); TOTAL CELLS COUNTED % (AUTO) 100 %; WHITE BLOOD COUNT 14.1 10^3/uL (4.0-10.5)
[2020-06-10 05:21] LABS: ALBUMIN 2.3 g/dL (3.5-5.0); ALKALINE PHOSPHATASE 27 U/L (38-126); ASPARTATE AMINO TRANSFERASE 25 U/L (17-59); BILIRUBIN,DIRECT 0.1 mg/dL (0.0-0.4); BLOOD UREA NITROGEN 19 mg/dL (7-20); CARBON DIOXIDE 24 mmol/L (22-30); CHLORIDE 110 mmol/L (98-107); GLUCOSE 117 mg/dL (75-110); POTASSIUM 3.4 mmol/L (3.6-5.0); TOTAL PROTEIN 4.5 g/dL (6.3-8.2)
[2020-06-10 05:32] LABS: ANION GAP 3 (5-19)
[2020-06-10] MEDS: BENZONATATE 100 MG CAPSULE PO SCH (06:21)
[2020-06-10] MEDS: INSULIN LISPRO 100 UNIT/ML 3 ML VIAL SUBCUT SCH ×2 (08:42→13:33)
[2020-06-10] MEDS: DEXAMETHASONE SOD PHOS INJ 10 MG/1 ML VIAL IV SCH (11:09)
[2020-06-10] MEDS: EZETIMIBE 10 MG TABLET PO SCH (11:10)
[2020-06-10] MEDS: CHOLECALCIFEROL (D3) 1,000 UNIT (25 MCG) TABLET PO SCH (11:10)
[2020-06-10] MEDS: DOXYCYCLINE HYCLATE 100 MG TABLET PO SCH (11:10)
[2020-06-10] MEDS: APIXABAN 5 MG TABLET PO SCH (11:10)
[2020-06-10] MEDS: ASCORBIC ACID 500 MG TABLET PO SCH (11:10)
[2020-06-10] MEDS: ZINC SULFATE 220 MG CAPSULE PO SCH (11:10)
[2020-06-10] MEDS: ASPIRIN 81 MG TABLET, ENT COATED PO SCH (11:10)
[2020-06-10] MEDS: TAMSULOSIN HCL 0.4 MG CAP.SR.24H PO SCH (11:10)
[2020-06-10] MEDS: ATORVASTATIN CALCIUM 40 MG TABLET PO SCH (11:10)
[2020-06-10] MEDS: PANTOPRAZOLE SODIUM 40 MG PACKET.DR PO SCH (11:11)
[2020-06-10] MEDS: DUTASTERIDE 0.5 MG CAPSULE PO SCH (11:11)
[2020-06-10] MEDS ORDERED: CARVEDILOL 6.25 MG TABLET PO ONE (11:15)
[2020-06-10] MEDS ORDERED: POTASSIUM CHLORIDE 10 MEQ TABLET.ER PO ONE (11:15)
[2020-06-10] MEDS ORDERED: CARVEDILOL 12.5 MG TABLET PO ONE (12:00)
[2020-06-10 12:07] VITALS: BP 110/69
--- NOTE | 2020-06-10 13:06 | PDOC DISCHARGE SUMMARY ---
Impression - Admit/DC Date/PCP Admission Date/Primary Care Provider: 06/04/20 06:12 IFRAH CORONEL MD Discharge Date: 06/10/20 - Discharge Diagnosis (1) COVID-19 virus infection Is this a current diagnosis for this admission?: Yes (2) HLD (hyperlipidemia) Is this a current diagnosis for this admission?: Yes (3) HTN (hypertension) Is this a current diagnosis for this admission?: Yes (4) History of lung cancer in adulthood Is this a current diagnosis for this admission?: Yes (5) SIRS (systemic inflammatory response syndrome) Is this a current diagnosis for this admission?: Yes (6) Septic shock due to undetermined organism Is this a current diagnosis for this admission?: Yes - Additional Information Resuscitation Status: Full Code Discharge Diet: Diabetic Discharge Activity: Activity As Tolerated Referrals: IFRAH CORONEL MD [Primary Care Provider] - 07/11/20 9:30 am (f/u in 1 wk ) Prescriptions: Dexamethasone 2 mg PO BID #10 tablet Doxycycline Hyclate [Vibramycin 100 mg Tablet] 100 mg PO Q12 #14 tablet Ascorbic Acid [Vitamin C 500 mg Tablet] 500 mg PO Q12 #60 tablet Cholecalciferol (Vitamin D3) [Vitamin D3 1000 Unit Tablet] 2,000 unit PO DAILY #30 tablet Zinc Sulfate [Zinc-220 Capsule] 220 mg PO DAILY #30 capsule Home Medications: Carvedilol [Coreg 25 mg Tablet] 1 tab PO Q12 03/14/15 Dutasteride [Avodart] 0.5 mg PO DAILY 03/14/15 Ezetimibe [Zetia 10 mg Tablet] 10 mg PO DAILY 03/14/15 Levocetirizine Dihydrochloride [Xyzal 5 mg Tablet] 5 mg PO DAILY 03/14/15 Sitagliptin Phos/Metformin HCl [Janumet 50-500 mg Tablet] 1 each PO BID 03/14/15 Tamsulosin HCl [Flomax 0.4 mg Cap.sr] 0.4 mg PO DAILY 03/14/15 Apixaban [Eliquis 5 mg Tablet] 5 mg PO BID 05/01/17 Atorvastatin Calcium 40 mg PO DAILY 05/01/17 Pantoprazole Sodium [Protonix] 40 mg PO DAILY 05/01/17 Benzonatate [Tessalon Perles 100 mg Capsule] 100 mg PO Q8 06/04/20 Ascorbic Acid [Vitamin C 500 mg Tablet] 500 mg PO Q12 #60 tablet 06/10/20 Cholecalciferol (Vitamin D3) [Vitamin D3 1000 Unit Tablet] 2,000 unit PO DAILY #30 tablet 06/10/20 Dexamethasone 2 mg PO BID #10 tablet 06/10/20 Doxycycline Hyclate [Vibramycin 100 mg Tablet] 100 mg PO Q12 #14 tablet 06/10/20 Zinc Sulfate [Zinc-220 Capsule] 220 mg PO DAILY #30 capsule 06/10/20 History of Present Illiness History of Present Illness: ALFONSO CARRANZA is a 80 year old male Patient was admitted because of the hypertensions pneumonia sepsis and COVID-19 Hospital Course Hospital Course: This is 80-year-old male recently diagnosed with the Covid start and outpatients antibiotics and steroid patients came to the emergency department increasing the shortness of the breath and not feeling well patient was hypertensive fever and Covid pneumonia Patient was treated with a dexamethasone IV broad-spectrum antibiotic Patient's blood culture urine culture is all negative patient's blood pressure initially was low coming back to the normal Patient at this point vancomycin was discontinued due to the abnormal blood culture and patient is responds very well with the other antibiotic Otherwise in the room air doing well no chest pain no shortness of the breath Blood work is stable except white count was slightly elevated but patient is remained afebrile throughout the test last 3 days Patient is really wants to go home and patient is currently doing very well we switched the patient's the p.o. antibiotic doxycycline and also continues the p.o. dexamethasone continues to monitor We hold the Entresto due to the patient's recent low blood pressure restart the Coreg Patient is discharged home with a stable conditions following a 1 week Physical Exam Vital Signs: Temp Pulse Resp BP Pulse Ox 98.4 F 71 18 110/69 100 06/10/20 12:05 06/10/20 12:05 06/10/20 12:05 06/10/20 12:05 06/10/20 12:05 Intake & Output 06/09/20 06/10/20 06/11/20 06:59 06:59 06:59 Intake Total 2213 2048 Output Total 155 170 Balance 8 1878 Weight 103.9 kg 105.1 kg General appearance: PRESENT: no acute distress, well-developed, well-nourished Head exam: PRESENT: atraumatic, normocephalic Eye exam: PRESENT: conjunctiva pink, EOMI, PERRLA. ABSENT: scleral icterus Ear exam: PRESENT: normal external ear exam Mouth exam: PRESENT: moist, tongue midline Neck exam: ABSENT: carotid bruit, JVD, lymphadenopathy, thyromegaly Respiratory exam: PRESENT: clear to auscultation ruth. ABSENT: rales, rhonchi, wheezes Cardiovascular exam: PRESENT: RRR. ABSENT: diastolic murmur, rubs, systolic murmur Pulses: PRESENT: normal dorsalis pedis pul Vascular exam: PRESENT: normal capillary refill GI/Abdominal exam: PRESENT: normal bowel sounds, soft. ABSENT: distended, guarding, mass, organolmegaly, rebound, tenderness Rectal exam: PRESENT: deferred Extremities exam: PRESENT: full ROM. ABSENT: calf tenderness, clubbing, pedal edema Neurological exam: PRESENT: alert, awake, oriented to person, oriented to place, oriented to time, oriented to situation, CN II-XII grossly intact. ABSENT: motor sensory deficit Psychiatric exam: PRESENT: appropriate affect, normal mood. ABSENT: homicidal ideation, suicidal ideation Skin exam: PRESENT: dry, intact, warm. ABSENT: cyanosis, rash Results Laboratory Results: WBC 14.1 10^3/uL (4.0-10.5) H 06/10/20 04:41 RBC 3.92 10^6/uL (4.35-5.55) L 06/10/20 04:41 Hgb 11.9 g/dL (13.5-17.0) L 06/10/20 04:41 Hct 34.5 % (37.9-51.0) L 06/10/20 04:41 MCV 88 fl (80-97) 06/10/20 04:41 MCH 30.4 pg (27.0-33.4) 06/10/20 04:41 MCHC 34.6 g/dL (32.0-36.0) 06/10/20 04:41 RDW 15.3 % (11.5-14.0) H 06/10/20 04:41 Plt Count 359 10^3/uL (150-450) 06/10/20 04:41 Lymph % (Auto) 18.1 % (13-45) 06/10/20 04:41 [place] % (Auto) 8.7 % (3-13) 06/10/20 04:41 Eos % (Auto) 1.4 % (0-6) 06/10/20 04:41 Baso % (Auto) 0.3 % (0-2) 06/10/20 04:41 Absolute Neuts (auto) 10.1 10^3/uL (1.7-8.2) H 06/10/20 04:41 Absolute Lymphs (auto) 2.5 10^3/uL (0.5-4.7) 06/10/20 04:41 Absolute Monos (auto) 1.2 10^3/uL (0.1-1.4) 06/10/20 04:41 Absolute Eos (auto) 0.2 10^3/uL (0.0-0.6) 06/10/20 04:41 Absolute Basos (auto) 0.0 10^3/uL (0.0-0.2) 06/10/20 04:41 Seg Neutrophils % 71.5 % (42-78) 06/10/20 04:41 PT 19.4 SEC (11.4-15.4) H 06/04/20 14:32 INR 1.62 06/04/20 14:32 APTT 35.8 SEC (23.5-35.8) 06/04/20 14:32 Fibrinogen 203 mg/dL (209-497) L 06/04/20 14:32 D-Dimer 0.27 ug/mL (0.00-0.50) 06/04/20 14:32 Sodium 137.4 mmol/L (137-145) 06/10/20 04:41 Potassium 3.4 mmol/L (3.6-5.0) L 06/10/20 04:41 Chloride 110 mmol/L (98-107) H 06/10/20 04:41 Carbon Dioxide 24 mmol/L (22-30) 06/10/20 04:41 Anion Gap 3 (5-19) L 06/10/20 04:41 BUN 19 mg/dL (7-20) 06/10/20 04:41 Creatinine 1.01 mg/dL (0.52-1.25) 06/10/20 04:41 Est GFR ( Amer) > 60 (>60) 06/10/20 04:41 Est GFR (MDRD) Non-Af > 60 (>60) 06/10/20 04:41 Glucose 117 mg/dL (75-110) H 06/10/20 04:41 POC Glucose 109 mg/dL (70-110) 06/10/20 08:08 Lactic Acid 0.8 mmol/L (0.7-2.1) 06/04/20 03:34 Calcium 8.0 mg/dL (8.4-10.2) L 06/10/20 04:41 Ferritin 55.50 ng/mL (17.9-464.0) 06/04/20 14:32 Total Bilirubin 1.0 mg/dL (0.2-1.3) 06/10/20 04:41 Direct Bilirubin 0.1 mg/dL (0.0-0.4) 06/10/20 04:41 Neonat Total Bilirubin Not Reportable 06/10/20 04:41 Neonat Direct Bilirubin Not Reportable 06/10/20 04:41 Neonat Indirect Bili Not Reportable 06/10/20 04:41 AST 25 U/L (17-59) 06/10/20 04:41 ALT 52 U/L (<50) H 06/10/20 04:41 Alkaline Phosphatase 27 U/L (38-126) L 06/10/20 04:41 Lactate Dehydrogenase 137 U/L (120-246) 06/04/20 14:32 Creatine Kinase 35 U/L (55-170) L 06/04/20 14:32 Troponin I 0.025 ng/mL 06/03/20 20:27 C-Reactive Protein < 5.0 mg/L (<10.0) 06/04/20 14:32 Total Protein 4.5 g/dL (6.3-8.2) L 06/10/20 04:41 Albumin 2.3 g/dL (3.5-5.0) L 06/10/20 04:41 Urine Color YELLOW 06/03/20 22:37 Urine Appearance SLIGHTLY-CLOUDY 06/03/20 22:37 Urine pH 5.0 (5.0-9.0) 06/03/20 22:37 Ur Specific [place] 1.019 06/03/20 22:37 Urine Protein 30 mg/dL (NEGATIVE) H 06/03/20 22:37 Urine Glucose (UA) NEGATIVE mg/dL (NEGATIVE) 06/03/20 22:37 Urine Ketones NEGATIVE mg/dL (NEGATIVE) 06/03/20 22:37 Urine Blood NEGATIVE (NEGATIVE) 06/03/20 22:37 Urine Nitrite NEGATIVE (NEGATIVE) 06/03/20 22:37 Urine Bilirubin NEGATIVE (NEGATIVE) 06/03/20 22:37 Urine Urobilinogen NEGATIVE mg/dL (<2.0) 06/03/20 22:37 Ur Leukocyte Esterase NEGATIVE (NEGATIVE) 06/03/20 22:37 Urine WBC (Auto) 1 /HPF 06/03/20 22:37 Urine RBC (Auto) 1 /HPF 06/03/20 22:37 U Hyaline Cast (Auto) 5 /LPF 06/03/20 22:37 Urine Bacteria (Auto) TRACE /HPF 06/03/20 22:37 Squamous Epi Cells Auto 2 /HPF 06/03/20 22:37 Urine Mucus (Auto) FEW /LPF 06/03/20 22:37 Urine Ascorbic Acid NEGATIVE (NEGATIVE) 06/03/20 22:37 Time Trough Drawn 213606/08/20 21:37 Vancomycin Trough < 5.0 ug/mL (5.0-20.0) L 06/08/20 21:37 Influenza A (RT-PCR) NEGATIVE (NEGATIVE) 06/03/20 20:48 Influenza B (RT-PCR) NEGATIVE (NEGATIVE) 06/03/20 20:48 RSV (RT-PCR) NEGATIVE (NEGATIVE) 06/03/20 20:48 SARS-CoV-2 Rap RNA(RT-PCR) POSITIVE (NEGATIVE) 06/03/20 20:48 06/03/20 20:27 Troponin I 0.025 Impressions: Chest X-Ray 06/03/20 20:08 IMPRESSION: Improved aeration of the right midlung zone when compared to the previous exam dated 05/25/2020. Overall, there are no new findings within the chest when compared to the previous exam dated 05/25/2020. Chest X-Ray 06/08/20 00:00 IMPRESSION: NEW FAINT PARENCHYMAL DENSITY IN THE LEFT LUNG BASE. COULD BE DUE TO DEVELOPING PNEUMONIA. Plan Time Spent: Greater than 30 Minutes - Following a 1 week we will hold the Entresto repeat the CBC and Chem-7 in next week Stroke Is this a Stroke Patient?: No Acute Heart Failure Is this a Heart Failure Patient?: No
== END 2020-06-10 13:09 | disposition home health service (06) | DRG 177 ==
LOC: ER 19:53 → EH 06-04 06:12 → 3N 06-04 08:51
PROVIDERS: ADMIT Family Medicine; ATTEND Family Medicine
DX: U07.1 COVID-19 (principal); J12.82 Pneumonia due to coronavirus disease 2019; I48.19 Other persistent atrial fibrillation; I10 Essential (primary) hypertension; E78.5 Hyperlipidemia, unspecified; Z87.891 Personal history of nicotine dependence; Z79.899 Other long term (current) drug therapy; Z85.118 Personal history of other malignant neoplasm of bronchus and lung
CPT/HCPCS: 36415; 71045; 80053; 80202; 81001; 82550; 82728; 82962; 83605; 83615; 84484; 85025; 85379; 85384; 85610; 85730; 86140; 87040; 87086; 93005; 93010; 96361; 96365; 96366; 96367; 96375; 99285; 0241U; C9803; J1100; J1815; J2543; J3370; J3490; J7030; J7050; J7060